=== PATIENT | male | born 1970 | race Caucasian/White ===

== ENCOUNTER 2018-12-17 19:12 | Inpatient (IN) | payer BC, OTHER ==
[2018-12-17 19:17] LABS: Glucose,Whole Blood 319 mg/dL (75-99)
[2018-12-17] MEDS ORDERED: ETOMIDATE 2 MG/ML 10 ML VIAL IVP STA (19:21)
[2018-12-17] MEDS ORDERED: ROCURONIUM BROMIDE 10 MG/ML 10 ML VIAL IV ONE (19:21)
[2018-12-17 19:32] LABS: HCT 44.3 % (39.0-53.0); HGB 14.6 gm/dL (13.0-17.5); MCH 30.4 pg (25.0-35.0); MCV 92.1 fL (80.0-100.0); Platelet Count 221 k/uL (150-450); RBC 4.81 m/uL (4.30-5.90); RDW 12.8 % (11.5-15.5); WBC 16.9 k/uL (3.8-10.6)
[2018-12-17] MEDS ORDERED: HEPARIN SODIUM,PORCINE 5,000 UNIT/ML 1 ML VIAL IV ONE (19:34)
[2018-12-17] MEDS ORDERED: HEPARIN SODIUM,PORCINE 5,000 UNIT/ML 1 ML VIAL IV PRN (19:34)
[2018-12-17] MEDS ORDERED: ASPIRIN 300 MG SUPP RECTAL STA (19:35)
[2018-12-17] MEDS ORDERED: PROPOFOL 1,000 MG in EMPTY BAG 1 BAG IV ONE (19:35)
[2018-12-17] MEDS ORDERED: PROPOFOL 10 MG/ML 20 ML VIAL IV ONE (19:36)
[2018-12-17 19:41] LABS: Albumin 4.1 g/dL (3.5-5.0); Potassium 3.8 mmol/L (3.5-5.1); Total Bilirubin 1.2 mg/dL (0.2-1.3); Total Protein 6.5 g/dL (6.3-8.2)
[2018-12-17] MEDS ORDERED: HEPARIN SOD,PORK IN 0.45% NACL 25,000 UNIT in 0.45% NACL 1 250ML.BAG IV SCH (19:45)
--- NOTE | 2018-12-17 19:46 | ED ---
CPR HPI - General Chief Complaint: Cardiac Arrest/CPR Stated Complaint: cardiac arrest Time Seen by Provider: 12/17/18 19:32 Source: family, EMS, RN notes reviewed Mode of arrival: EMS Limitations: no limitations - History of Present Illness Initial Comments: This is a 48-year-old male who was playing softball just prior to arrival when he started developing anterior chest pain and burning sensation. He collapsed suddenly and CPR was started initially. 35 minutes of CPR prior to arrival of EMS he was found be V. fib he was shocked 3 times intubation was attempted in the field but unsuccessful. Patient brought in unresponsive maintaining a pulse and blood pressure however. Per EMS there is elevation of the ST segments on EKG indicating AL. Per the patient's after is a family history of cardiac disease no personal history of the patient. He does have a history of type 2 diabetes. MD Complaint: collapsed during activity - Related Data Home Medications Medication Instructions Recorded Confirmed metFORMIN HCL 1,000 mg PO BID 12/17/18 12/17/18 Allergies Allergy/AdvReac Type Severity Reaction Status Date / Time No Known Allergies Allergy Verified 12/17/18 19:35 Review of Systems ROS Statement: Those systems with pertinent positive or pertinent negative responses have been documented in the HPI. ROS Other: All systems not noted in ROS Statement are negative. Limitations: ROS unobtainable due to patients medical condition Past Medical History Past Medical History: Diabetes Mellitus, Hyperlipidemia History of Any Multi-Drug Resistant Organisms: None Reported Past Surgical History: No Surgical Hx Reported Past Psychological History: No Psychological Hx Reported Smoking Status: Never smoker Past Alcohol Use History: None Reported Past Drug Use History: None Reported General Exam - General Exam Comments Initial Comments: This a well-developed well-nourished unresponsive male who did have a pulse and blood pressure upon arrival. He was noted to be vomiting examination. His pulse ox was not maintained. Intubation was attempted on several occasions. Suctioned during the process. He did require bag valve masking also. Several attempts are made at intubation unsuccessfully the patient was finally intubated by anesthesiology. Limitations: no limitations General appearance: obtunded, in distress Head exam: Present: atraumatic, normocephalic, normal inspection Eye exam: Present: normal appearance, PERRL, EOMI. Absent: scleral icterus, conjunctival injection, periorbital swelling ENT exam: Present: other (EmesisNoted in the airway.) Neck exam: Present: normal inspection, other (No stridor JVD or bruits). Absent : tenderness, meningismus, lymphadenopathy Respiratory exam: Present: decreased breath sounds Cardiovascular Exam: Present: normal rhythm, tachycardia GI/Abdominal exam: Present: other (Distended abdomen no masses palpable) Rectal exam: Present: deferred exam: Present: normal inspection Extremities exam: Present: normal inspection, normal capillary refill Back exam: Present: normal inspection Neurological exam: Present: altered Psychiatric exam: Present: other (Unable to evaluate) Skin exam: Present: diaphoretic, other (Cool the touch) Course Vital Signs 12/17/18 12/17/18 12/17/18 19:15 19:32 19:40 Pulse Rate 133 H 140 H 126 H Respiratory 7 L 8 L 18 Rate Blood Pressure 110/71 118/96 137/87 O2 Sat by Pulse 94 L 95 Oximetry - Reevaluation(s) Reevaluation #1: 12/17/18 19:45 During the preparation for initial intubation patient was noted by down on the suction catheter. He did briefly become responsive. The patient was given Versed but not morphine sulfate. Dr. Delong was consulted prior to the patient arrival he did come to the emergency department to evaluate the patient. Reevaluation #2: 12/17/18 19:50 Dr. Delong did come the emergency department and the patient did go the [facility]. Procedures - Intubation Sedative: Etomidate Mg Given: 20 Paralytic: Rocuronium Mg Given: 100 Laryngoscope: fiber optic video scope Assist Device Used: Bougie Intubation Complications: unable to intubate, difficult intubation Medical Decision Making - Medical Decision Making The patient was admitted to the [facility]. - Lab Data Result diagrams: 12/17/18 19:25 12/17/18 19:25 Lab Results 12/17/18 12/17/18 12/17/18 Range/Units 19:16 19:25 19:25 WBC 16.9 H (3.8-10.6) k/uL RBC 4.81 (4.30-5.90) m/uL Hgb 14.6 (13.0-17.5) gm/dL Hct 44.3 (39.0-53.0) % MCV 92.1 (80.0-100.0) fL MCH 30.4 (25.0-35.0) pg MCHC 33.0 (31.0-37.0) g/dL RDW 12.8 (11.5-15.5) % Plt Count 221 (150-450) k/uL PT (9.0-12.0) sec INR (<1.2) APTT (22.0-30.0) sec Sodium 143 (137-145) mmol/L Potassium 3.8 (3.5-5.1) mmol/L Chloride 105 (98-107) mmol/L Carbon Dioxide 16 L (22-30) mmol/L Anion Gap 22 mmol/L BUN 18 (9-20) mg/dL Creatinine 1.49 H (0.66-1.25) mg/dL Est GFR (CKD-EPI)AfAm 63 (>60 ml/min/1.73 sqM) Est GFR (CKD-EPI)NonAf 55 (>60 ml/min/1.73 sqM) Glucose 340 H (74-99) mg/dL POC Glucose (mg/dL) 319 H (75-99) mg/dL POC Glu Model And Mold Maker ID Fidel Augustine Calcium 9.0 (8.4-10.2) mg/dL Total Bilirubin 1.2 (0.2-1.3) mg/dL AST 222 H (17-59) U/L ALT 281 H (21-72) U/L Alkaline Phosphatase 57 (38-126) U/L Total Creatine Kinase (55-170) U/L CK-MB (CK-2) (0.0-2.4) ng/mL CK-MB (CK-2) Rel Index Troponin I (0.000-0.034) ng/mL Total Protein 6.5 (6.3-8.2) g/dL Albumin 4.1 (3.5-5.0) g/dL 12/17/18 12/17/18 Range/Units 19:25 19:25 WBC (3.8-10.6) k/uL RBC (4.30-5.90) m/uL Hgb (13.0-17.5) gm/dL Hct (39.0-53.0) % MCV (80.0-100.0) fL MCH (25.0-35.0) pg MCHC (31.0-37.0) g/dL RDW (11.5-15.5) % Plt Count (150-450) k/uL PT 11.0 (9.0-12.0) sec INR 1.0 (<1.2) APTT 21.2 L (22.0-30.0) sec Sodium (137-145) mmol/L Potassium (3.5-5.1) mmol/L Chloride (98-107) mmol/L Carbon Dioxide (22-30) mmol/L Anion Gap mmol/L BUN (9-20) mg/dL Creatinine (0.66-1.25) mg/dL Est GFR (CKD-EPI)AfAm (>60 ml/min/1.73 sqM) Est GFR (CKD-EPI)NonAf (>60 ml/min/1.73 sqM) Glucose (74-99) mg/dL POC Glucose (mg/dL) (75-99) mg/dL POC Glu Model And Mold Maker ID Calcium (8.4-10.2) mg/dL Total Bilirubin (0.2-1.3) mg/dL AST (17-59) U/L ALT (21-72) U/L Alkaline Phosphatase (38-126) U/L Total Creatine Kinase 123 (55-170) U/L CK-MB (CK-2) 0.4 (0.0-2.4) ng/mL CK-MB (CK-2) Rel Index 0.3 Troponin I 0.018 (0.000-0.034) ng/mL Total Protein (6.3-8.2) g/dL Albumin (3.5-5.0) g/dL - EKG Data -: EKG Interpreted by Me (EKG showed a sinus tachycardia of 141 ID interval 180 QRS duration 90 QT si) - Radiology Data Radiology results: image reviewed (Imaging was performed I did review the x-ray report was pending the endotracheal tube was above the florence.) Critical Care Time Critical Care Time: Yes Critical Care Time: 35 minutes of critical care time which reason case with history physical labs x- rays this does not include intubation attempt. This does include discussion with the patient's upon arrival discussed with paramedics upon arrival discussion with Dr. Delong and discussed with Dr. Han as well as discussed with Dr. Macias. We will any history that was available and documentation of the above Disposition Clinical Impression: Cardiac arrest, Acute myocardial infarction, Cardiac arrest with ventricular fibrillation, Signs of return of spontaneous circulation Disposition: ADMITTED IP TO THIS HOSP Condition: Critical Referrals: Iam Macias Jr, DO [Primary Care Provider] - 1-2 days
[2018-12-17 19:52] LABS: Partial Thromboplastin Time 21.2 sec (22.0-30.0)
[2018-12-17] MEDS ORDERED: ASPIRIN 325 MG TAB ONE (19:55)
[2018-12-17 19:59] LABS: Creatine Kinase MB 0.4 ng/mL (0.0-2.4); Troponin I 0.018 ng/mL (0.000-0.034)
--- NOTE | 2018-12-17 20:02 | XR ---
EXAMINATION TYPE: XR chest 1V portable DATE OF EXAM: 12/17/2018 COMPARISON: 10/26/2014 HISTORY: Chest pain TECHNIQUE: Single frontal view of the chest is obtained. FINDINGS: Endotracheal tube is 6 cm from the florence. There is some pulmonary edema. Costophrenic ang les are clear. Heart size is normal. There are chest leads. IMPRESSION: There is pulmonary edema that could relate to acute heart failure. Pulmonary edema is ne w compared to old exam.
[2018-12-17] MEDS ORDERED: LIDOCAINE 1% INJ 10MG/ML (20 ML MDV) SQ ONE (20:03)
[2018-12-17] MEDS ORDERED: ASPIRIN 325 MG TAB OG-TUBE ONE (20:03)
--- NOTE | 2018-12-17 20:03 | ED ---
Medical Decision Making - Lab Data Result diagrams: 12/17/18 19:25 12/17/18 19:25 Lab Results 12/17/18 12/17/18 12/17/18 Range/Units 19:16 19:25 19:25 WBC 16.9 H (3.8-10.6) k/uL RBC 4.81 (4.30-5.90) m/uL Hgb 14.6 (13.0-17.5) gm/dL Hct 44.3 (39.0-53.0) % MCV 92.1 (80.0-100.0) fL MCH 30.4 (25.0-35.0) pg MCHC 33.0 (31.0-37.0) g/dL RDW 12.8 (11.5-15.5) % Plt Count 221 (150-450) k/uL PT (9.0-12.0) sec INR (<1.2) APTT (22.0-30.0) sec Sodium 143 (137-145) mmol/L Potassium 3.8 (3.5-5.1) mmol/L Chloride 105 (98-107) mmol/L Carbon Dioxide 16 L (22-30) mmol/L Anion Gap 22 mmol/L BUN 18 (9-20) mg/dL Creatinine 1.49 H (0.66-1.25) mg/dL Est GFR (CKD-EPI)AfAm 63 (>60 ml/min/1.73 sqM) Est GFR (CKD-EPI)NonAf 55 (>60 ml/min/1.73 sqM) Glucose 340 H (74-99) mg/dL POC Glucose (mg/dL) 319 H (75-99) mg/dL POC Glu Communication Coordinator ID Fidel Augustine Calcium 9.0 (8.4-10.2) mg/dL Total Bilirubin 1.2 (0.2-1.3) mg/dL AST 222 H (17-59) U/L ALT 281 H (21-72) U/L Alkaline Phosphatase 57 (38-126) U/L Total Creatine Kinase (55-170) U/L CK-MB (CK-2) (0.0-2.4) ng/mL CK-MB (CK-2) Rel Index Troponin I (0.000-0.034) ng/mL Total Protein 6.5 (6.3-8.2) g/dL Albumin 4.1 (3.5-5.0) g/dL 12/17/18 12/17/18 Range/Units 19:25 19:25 WBC (3.8-10.6) k/uL RBC (4.30-5.90) m/uL Hgb (13.0-17.5) gm/dL Hct (39.0-53.0) % MCV (80.0-100.0) fL MCH (25.0-35.0) pg MCHC (31.0-37.0) g/dL RDW (11.5-15.5) % Plt Count (150-450) k/uL PT 11.0 (9.0-12.0) sec INR 1.0 (<1.2) APTT 21.2 L (22.0-30.0) sec Sodium (137-145) mmol/L Potassium (3.5-5.1) mmol/L Chloride (98-107) mmol/L Carbon Dioxide (22-30) mmol/L Anion Gap mmol/L BUN (9-20) mg/dL Creatinine (0.66-1.25) mg/dL Est GFR (CKD-EPI)AfAm (>60 ml/min/1.73 sqM) Est GFR (CKD-EPI)NonAf (>60 ml/min/1.73 sqM) Glucose (74-99) mg/dL POC Glucose (mg/dL) (75-99) mg/dL POC Glu Communication Coordinator ID Calcium (8.4-10.2) mg/dL Total Bilirubin (0.2-1.3) mg/dL AST (17-59) U/L ALT (21-72) U/L Alkaline Phosphatase (38-126) U/L Total Creatine Kinase 123 (55-170) U/L CK-MB (CK-2) 0.4 (0.0-2.4) ng/mL CK-MB (CK-2) Rel Index 0.3 Troponin I 0.018 (0.000-0.034) ng/mL Total Protein (6.3-8.2) g/dL Albumin (3.5-5.0) g/dL Disposition Clinical Impression: Cardiac arrest, Acute myocardial infarction, Cardiac arrest with ventricular fibrillation, Signs of return of spontaneous circulation, Acute respiratory failure Disposition: ADMITTED IP TO THIS HOSP Condition: Critical Referrals: Iam Macais Jr, DO [Primary Care Provider] - 1-2 days Procedures - [place] Protocol (Time Out) Patient Identification (2 identifiers required): Chart, Arm Band, Name, Birthdate Patient/Legal Manufacturing Technology Analyst has Confirmed: Identity, Procedure, Consent Site Marked: Not Applicable
[2018-12-17] MEDS ORDERED: IV FLUID CONTINUATION 1,000 ML IV ONE (20:04)
[2018-12-17] MEDS ORDERED: NOREPINEPHRINE 4 MG in SODIUM CHLORIDE 0.9% 250 ML IV ONE (20:10)
[2018-12-17] MEDS ORDERED: BIVALIRUDIN BOLUS 250 MG/50 ML IV ONE (20:10)
[2018-12-17] MEDS ORDERED: BIVALIRUDIN 250 MG in SODIUM CHLORIDE 0.9% 50 ML IV ONE (20:10)
--- NOTE | 2018-12-17 20:11 | P.PN ---
Progress Note - Text Progress Note Date: 12/17/18 Anesthesiology called emergently down to ED to assist with intubation. Pt hypoxic with vomitus in the mouth at the time. An attempt at intubation in progress by the ED at the time. Once anesthesiology takes over, DLx1 with Glidescope with grade 1 view. Difficulty passing ETT due to Glidescope stylette severely bent. Repeat DLx1 with appropriate stylette. 8-0 ETT to 22 cm. +EtCO2 and b/l BS. ETT secured by ED staff. Further care by ED staff.
[2018-12-17] MEDS ORDERED: NITROGLYCERIN 1000MCG/10ML SYRINGE INTRACORON ONE (20:22)
[2018-12-17] MEDS ORDERED: MIDAZOLAM (PF) 2 MG/2 ML VIAL IV ONE (20:22)
[2018-12-17] MEDS ORDERED: METOPROLOL TARTRATE 5 MG/5 ML VIAL IVP ONE ×2 (20:26→20:28)
[2018-12-17] MEDS ORDERED: IOPAMIDOL-370 100ML BTL INJ ONE ×2 (20:30→20:31)
[2018-12-17] MEDS ORDERED: PRASUGREL 10 MG TAB ONE ×2 (20:33→20:34)
[2018-12-17] MEDS ORDERED: PRASUGREL 10 MG TAB OG-TUBE ONE (20:36)
--- NOTE | 2018-12-17 21:36 | CONS ---
CONSULTATION DATE OF CONSULTATION: Mr. Ha Pacheco is a gentleman who was brought to the emergency room by EMS after a witnessed cardiac arrest that happened apparently when he was playing baseball. The information that I have is he complained of some heartburn before he went out to play the game with his , and apparently on the baseball field he had chest pressure, burning discomfort and collapsed. EMS was called; probably about a 5- to 10-minute time frame. They did CPR. Initial rhythm was ventricular fibrillation. He was shocked 3 times. He had a sinus rhythm. Then he was intubated. They had some difficulty with intubation. After he arrived in the emergency room, his oxygenation was inadequate. He was again re-intubated and there was a lot of secretions. Possibility of aspiration is quite high. As I arrive, the patient is sedated, on a ventilator, and he is hemodynamically stable with a pressure of about 112 systolic. EKG suggests acute inferior MS with precordial ST depression and inferior ST elevation. I obtained the history mostly from the patient's . Apparently he has type 2 diabetes, takes oral agents, has not had any documented MS or any recent stress testing. He has no hypertension. He does not smoke. He does not take any statin medications. PAST MEDICAL HISTORY: Type 2 diabetes, on oral agents. PHYSICAL EXAMINATION: Blood pressure 112/70. Pulse rate is about 104 per minute. HEENT: Limited examination was performed. The patient had CPR and had resuscitation. Pupils were dilated. S1, S2 were heard normally without significant murmurs. Tachycardia noted. Lungs reveal bilateral ventilator-assisted breath sounds. Abdomen is soft. Lower extremities reveal palpable pulses. Central nervous system assessment was not performed. IMPRESSION: 1. Acute inferior ST-elevation myocardial infarction with a cardiac arrest, resuscitated with ventricular fibrillation. 2. Type 2 diabetes mellitus. RECOMMENDATIONS: I spoke to the patient's and family members, recommended prompt cardiac catheterization and intervention based on findings. Rationale, risks, benefits and options were explained, and I proceeded with the cardiac cath immediately. MMODL / IJN: [id number] /
[2018-12-17 21:45] LABS: ABG Base Excess -2.8 mmol/L; ABG HCO3 24 mmol/L (21-25); ABG Oxygen Saturation 91.5 % (94-97); ABG PCO2 48 mmHg (35-45); ABG PO2 67 mmHg (83-108); ABG TCO2 25 mmol/L (19-24); Allen Test Performed? Yes
--- NOTE | 2018-12-17 21:45 | CC ---
CARDIAC CATHETERIZATION REPORT DATE OF SERVICE: 12/17/2018 PROCEDURE: 1. Left heart catheterization, coronary angiography. 2. Percutaneous transluminal coronary angioplasty and stenting of totally occluded mid circumflex performed in the setting of an acute ST-elevation myocardial infarction with re-perfusion accomplished in 61 minutes. PERFORMED BY: Dr. Charla Delong. Moderate conscious sedation time was 36 minutes. Patient was on Versed and propofol drip. His oxygen saturation, hemodynamics and EKG were monitored closely. The patient was hypoxic in the high 80s and low 90s during the procedure, FiO2 of about 100% on the ventilator. The patient probably aspirated and had hypoxia. CLINICAL INFORMATION: Ha Pacheco was brought to the emergency room by EMS after a witnessed cardiac arrest and resuscitated ventricular fibrillation. Patient was not on any pressors. He received IV fluids. He was advised prompt cardiac catheterization. PROCEDURE NOTE: Under local anesthesia and strict aseptic precautions, a 6-Kiswahili introducer was placed in the right femoral artery. Using a right guide catheter of Mariaa type, I performed selective coronary angiography of right coronary artery. I then used a left Mariaa type guide catheter and performed PCI. I obtained initial images of the left system, then proceeded to perform PCI, and then did checking of his LV pressures. LV gram was not performed. The sheath was taken out and a Perclose device used to secure hemostasis and he was sent to the room in a stable condition. Overall patient was hemodynamically stable. However, I gave him almost a liter of IV fluids 0.9 saline and placed him on about 7.5 mcg of Levophed. His systolic pressure was about 105 mmHg. Cardiac Cath Findings : LVEDP =24 mm of Hg. No gradient across AV. RCA--Dominant No sig Dz, gives off PLV only. Left Main : Patent disease free vessel, bifurcates into LAD an LCX. LAD : No sig Dz. LCX : 100% occlusion in mid portion. PCI PROCEDURE DETAILS: I used a standard left Mariaa guide catheter to cannulate the left coronary artery. A run-through wire was used to cross the lesion in Lcx. A 3.0 caliber, 12 mm Trek balloon was used to pre-dilate the lesion. I deployed a 12 mm long, 3.0 caliber Xience stent at 12 atmospheres. Patient had more prominent EKG changes. Could not assess chest pain. Excellent angiographic result was achieved with remarkably good angiographic appearance and flow with significant improvement in the EKG, but mild ST-segment elevation still persisted. The patient had a SEDRICK-3 flow. His Levophed dose was about 7.5 mcg. The sheath was taken out and a Perclose device used to secure hemostasis and he was sent to the ICU, when the findings and details of the procedure were discussed with the patient and several family members, specifically his .Angiomax bolus and infusion was given per protocol. Effient 60 mg given thru NGTube. Excellent angiographic result was achieved. Re-perfusion was achieved in 61 minutes. I expect patient will do well cardiac-french. Neurologically we will have to see how he does, and also there is concern about hypoxia and aspiration, which may contribute to his prognosis. Prognosis remains guarded. MMTUTUL / IJN: [id number] / MTDD
[2018-12-17] MEDS: SODIUM CHLORIDE 0.9% 1,000 ML IV SCH (22:14)
[2018-12-17] MEDS ORDERED: INSULIN ASPART (NovoLOG) 100 UNIT/ML VIAL SQ SCH (22:15)
[2018-12-17] MEDS: PROPOFOL 1,000 MG in EMPTY BAG 1 BAG IV SCH (22:20)
[2018-12-17] MEDS: POTASSIUM CHLORIDE 10 MEQ in WATER FOR INJECTION 1 100ML.BAG IVPB SCH ×2 (22:23→23:30)
--- NOTE | 2018-12-17 22:57 | XR ---
EXAM: XR Chest, 1 View CLINICAL HISTORY: ITS.REASON XR Reason: mechanical intubation TECHNIQUE: Frontal view of the chest. COMPARISON: 12/17/18 at 1939. FINDINGS: Interval placement of feeding tube with the tip in the stomach. Endotracheal tube appears unchanged. Additional findings similar to prior. IMPRESSION: Interval placement of feeding tube with the tip in the stomach.
[2018-12-17] MEDS: NOREPINEPHRINE 4 MG in SODIUM CHLORIDE 0.9% 250 ML IV SCH (23:15)
[2018-12-17] MEDS: IPRATROPIUM-ALBUTEROL 3 ML NEB INHALATION SCH (23:16)
[2018-12-18 00:37] LABS: Glucose,Whole Blood 120 mg/dL (75-99)
[2018-12-18] MEDS: INSULIN ASPART (NovoLOG) 100 UNIT/ML VIAL SQ SCH ×4 (00:43→17:54)
[2018-12-18] MEDS: PROPOFOL 1,000 MG in EMPTY BAG 1 BAG IV SCH ×10 (00:46→20:56)
[2018-12-18] MEDS: IPRATROPIUM-ALBUTEROL 3 ML NEB INHALATION SCH ×6 (02:33→23:33)
[2018-12-18] MEDS ORDERED: NALOXONE 0.4 MG/ML 1 ML VIAL IV PRN (02:51)
[2018-12-18 04:32] LABS: ABG HCO3 24 mmol/L (21-25); ABG Oxygen Saturation 99.6 % (94-97); ABG PCO2 41 mmHg (35-45); ABG PH 7.38 (7.35-7.45); ABG PO2 183 mmHg (83-108); ABG TCO2 26 mmol/L (19-24); Allen Test Performed? Yes
[2018-12-18 05:16] LABS: Basophils % (A) 0 %; Eosinophils % (A) 1 %; HCT 44.2 % (39.0-53.0); HGB 14.3 gm/dL (13.0-17.5); Lymphocytes # (A) 0.3 k/uL (1.0-4.8); Lymphocytes % (A) 5 %; MCH 28.7 pg (25.0-35.0); MCHC 32.4 g/dL (31.0-37.0); MCV 88.6 fL (80.0-100.0); Mean Platelet Volume 7.4; Monocytes # (A) 0.3 k/uL (0-1.0); Monocytes % (A) 5 %; Neutrophils # (A) 5.7 k/uL (1.3-7.7); Neutrophils % (A) 89 %; Platelet Count 168 k/uL (150-450); RBC 4.99 m/uL (4.30-5.90); WBC 6.4 k/uL (3.8-10.6)
[2018-12-18 05:21] LABS: African American GFR (CKD) >90 (>60 ml/min/1.73 sqM); Anion Gap 5 mmol/L; Blood Urea Nitrogen 19 mg/dL (9-20); Calcium 8.4 mg/dL (8.4-10.2); Carbon Dioxide 24 mmol/L (22-30); Chloride 110 mmol/L (98-107); Glucose 164 mg/dL (74-99); Magnesium 1.5 mg/dL (1.6-2.3); Phosphorus 2.1 mg/dL (2.5-4.5); Potassium 3.8 mmol/L (3.5-5.1); Sodium 139 mmol/L (137-145)
[2018-12-18] MEDS ORDERED: Potassium Replacement Protocol 1 EACH MISC MISCELLANE PRN (05:28)
[2018-12-18] MEDS ORDERED: Magnesium Replacement Protocol 1 EACH MISC MISCELLANE PRN (05:29)
[2018-12-18] MEDS: POTASSIUM CHLORIDE 10 MEQ in WATER FOR INJECTION 1 100ML.BAG IVPB SCH ×2 (05:35→06:40)
[2018-12-18 05:40] LABS: Glucose,Whole Blood 151 mg/dL (75-99)
[2018-12-18] MEDS: MAGNESIUM SULFATE-D5W PMX 1 GM in DEXTROSE/WATER 1 100ML.BAG IVPB SCH ×2 (05:56→06:51)
[2018-12-18] MEDS ORDERED: Phosphorus Replacement Protoco 1 EACH MISC MISCELLANE PRN (06:08)
[2018-12-18] MEDS ORDERED: POTASSIUM PHOSPHATE 10 MMOL in SODIUM CHLORIDE 0.9% 250 ML IV ONE (06:30)
--- NOTE | 2018-12-18 06:48 | XR ---
EXAMINATION TYPE: XR chest 1V portable DATE OF EXAM: 12/18/2018 HISTORY: Tube placement. REFERENCE: Previous study dated . FINDINGS: An ET tube and feeding tube remain in place, unchanged in appearance. Heart size upper limits of normal. There is developing atelectasis at the left lung base. There is ai rspace disease of the right lung base. This has progressed. There is a small right effusion. IMPRESSION: 1. DEVELOPING LEFT BASILAR ATELECTASIS. 2. RIGHT LOWER LOBE AIRSPACE DISEASE WITH A CONCOMITANT EFFUSION.
[2018-12-18] MEDS: CHLORHEXIDINE GLUCONATE 15 ML CUP MUCOUS MEM SCH ×2 (08:26→21:55)
[2018-12-18] MEDS: ATORVASTATIN 80 MG TAB PO SCH (08:26)
[2018-12-18] MEDS: ASPIRIN 81 MG PO SCH (08:26)
[2018-12-18] MEDS: PRASUGREL 10 MG TAB PO SCH (08:26)
[2018-12-18] MEDS: PANTOPRAZOLE 40 MG/10 ML VIAL IV SCH (08:26)
[2018-12-18] MEDS: HEPARIN SODIUM,PORCINE 5,000 UNIT/ML 1 ML VIAL SQ SCH ×2 (08:26→16:14)
[2018-12-18] MEDS: SODIUM CHLORIDE 0.9% 1,000 ML IV SCH ×2 (08:59→16:27)
--- NOTE | 2018-12-18 09:58 | CONS ---
CONSULTATION DATE OF CONSULTATION: December 18, 2018 This is a 48-year-old male who apparently was playing softball yesterday. He apparently developed chest pain and chest discomfort with a burning sensation. He apparently collapsed and was in full cardiopulmonary arrest and bystander CPR was started. He apparently had CPR for some period of time prior to EMS arriving. He apparently was found when paddles were placed on his chest to be in ventricular fibrillation and he was defibrillated 3 times. He was intubated in the field but apparently extubated himself and there was an attempt at re-intubation in the emergency room. Apparently, the ER physician could not reintubate him and the patient was finally intubated by Anesthesia. The EKG apparently showed ST-segment elevation suggesting a STEMI and once stabilized in the emergency room and after being intubated, he was taken to the catheterization laboratory where he had a successful angioplasty of his circumflex coronary artery. I did speak to both the ER physician, Dr. Kevin and also the hemmer automatic, Dr. Charla Delong. Interestingly, in the process of trying to be intubated in the emergency room, the patient had a large volume aspiration. His chest x-ray shows diffuse bilateral infiltrates and initially he was quite hypoxemic. The patient apparently does have a history of diabetes and hyperlipidemia. There is apparently a family history of cardiac disease. HOME MEDICATIONS: Apparently were just metformin. ALLERGIES: He has no known allergies. PAST MEDICAL HISTORY: He has a history of diabetes and hyperlipidemia are his only medical history. No prior surgical history. SOCIAL HISTORY: Negative tobacco, alcohol or illicit drug use. Occupational history could not be obtained. FAMILY HISTORY: Positive for cardiac disease. REVIEW OF SYSTEMS: Cannot be obtained at this time. Apparently prior to his collapse, he started complaining of chest pain and chest burning. Currently, the patient is on the mechanical ventilator. He is on the volume assist- control mode rate of 22, tidal volume 500, FiO2 of 70%, PEEP of 10. Blood gases that were done on 100% show pO2 of 183, pCO2 of 41, pH 7.38. Respiratory therapist know to continue to titrate down the FiO2. He is currently on propofol at 75 mcg/kg per minute and a saline IV 100 mL an hour. The endotracheal tube needs to be pushed down 1 cm and we are going to place an art line in the patient and add some Dilaudid for pain control. PHYSICAL EXAMINATION: VITAL SIGNS: Current vital signs are reviewed. Temperature is 100.3, heart rate 116, respiratory rate 20, blood pressure 100/75, mean 82, saturations are 100%. Currently sedated. HEENT examination is grossly unremarkable. He has an orally placed endotracheal tube and NG tube. NECK: Supple. No adenopathy, thyromegaly or neck vein distention. CARDIOVASCULAR examination reveals regular rhythm and rate. He is mildly tachycardic. Heart rate about 100 to 105 beats per minute. LUNGS: Coarse rhonchi bilaterally. No wheezes or crackles. ABDOMEN: Soft. Bowel sounds are not noted. EXTREMITIES are intact. No cyanosis, clubbing, or edema. SKIN: Without rash. NEUROLOGIC examination could not be evaluated because of his level of sedation. Microbiologic studies are negative. LABS: Reviewed. White count 6.4, hemoglobin 14.3, hematocrit 44.2, platelet count 168,000. Sodium 139, potassium 3.8, chloride 110, CO2 24 anion gap is 5, BUN and creatinine were 19 and 0.95. Troponin 9.050. Phosphorus 2.1, magnesium 1.5. Zero 5. Chest x-ray shows diffuse bilateral infiltrates. Medications are reviewed. He is currently on aspirin, Lipitor, chlorhexidine, subcu heparin, insulin subcu, DuoNeb q.4, magnesium, phosphorus and potassium replacement protocols, Narcan, Protonix, Effient. ASSESSMENT: 1. Status post [id number] cardiopulmonary arrest with ventricular fibrillation noted on monitor, status post defibrillation x3 and subsequent PCI with stenting of the circumflex coronary artery. 2. ST-segment elevation myocardial infarction/inferior wall. 3. Hypoxemic respiratory failure requiring intubation and mechanical ventilation. 4. Large volume gastric aspiration. 5. History of diabetes. 6. History of hyperlipidemia. 7. Family history of cardiac disease. 8. Electrolyte disturbances including hypophosphatemia and hypomagnesemia. PLAN: The patient will have an art line placed. We will add some Dilaudid for pain control. He will continue on propofol. We will continue to wean the FiO2. The PEEP was increased to improve oxygenation. His acid-base status is stable. No additional recommendations are made. Prognosis is guarded. I did speak to the ER physician and to the hemmer automatic about this patient. We will continue to watch closely. The patient will be cultured including blood, sputum and urine. MMODL / IJN: [id number] /
--- NOTE | 2018-12-18 10:10 | PCN ---
This procedure was done for hemodynamic monitoring for hypotension and possible pressor requirements. PROCEDURE NOTE DATE OF SERVICE: 12/18/2018 ARTERIAL LINE PLACEMENT: Indications: Hemodynamic monitoring. A time-out was completed verifying correct patient, procedure, site, positioning, and implant(s) or special equipment if applicable. Ebenezer's test was performed to ensure adequate perfusion. The patient's left wrist was prepped and draped in sterile fashion. 1% Lidocaine was used to anesthetize the area. An 18G Arrow arterial line was introduced into the radial artery. The catheter was threaded over the guide wire and the needle was removed with appropriate pulsatile blood return. Blood loss was minimal. The catheter was then sutured in place to the skin and a sterile dressing applied. Perfusion to the extremity distal to the point of catheter insertion was checked and found to be adequate. The patient tolerated the procedure well and there were no complications. MMODL / IJN: [id number] / MTDD
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
[2018-12-18 11:46] LABS: Glucose,Whole Blood 153 mg/dL (75-99)
[2018-12-18] MEDS: NOREPINEPHRINE 4 MG in SODIUM CHLORIDE 0.9% 250 ML IV SCH ×2 (11:52→23:10)
--- NOTE | 2018-12-18 14:52 | P.PN ---
Subjective Progress Note Date: 12/18/18 this is a 48-year-old gentleman who was admitted following cardiac arrest with documented ventricular fibrillation. This is preceded by chest pain. Patient had a cardiac catheterization and stent placement of the circumflex in the setting of acute myocardial infarction. It appears that patient might have had aspiration pneumonia. Patient is still intubated and sedated. Apparently when he is less sedated. Patient was moving all extremitiesand responding to verbal commands. His pupils are equal and reactive. He is in sinus rhythm. His blood pressures are running on the low side in the range of 9200 systolic. His urine output is good. His lab work showsnormal hemoglobin, normal electrolytes except low magnesium level. This is being corrected. His troponin went up 9.05. Overall patient seemed to be hemodynamically stable. Mental status seemed to be reasonable at this time Objective - Vital Signs Vital signs: Vital Signs Temp 97.9 F 12/18/18 12:00 Pulse 101 H 12/18/18 14:30 Resp 29 H 12/18/18 14:30 BP 101/69 12/18/18 14:30 Pulse Ox 100 12/18/18 14:30 Intake & Output 12/17/18 12/18/18 12/18/18 18:59 06:59 18:59 Intake Total 3628.889 7002.000 Output Total 955 680 Balance 632.290 870.000 Weight 114 kg 114 kg Intake: IV 1300 1250 Magnesium Sulfate-D5w Pmx 100 100 1 gm In Dextrose/Water 1 100ml.bag @ 100 mls/hr IVPB Q1H [facility] Rx#: [id number] Potassium Chloride 10 meq 300 100 In Water For Injection 1 100ml.bag @ 100 mls/hr IVPB Q1H [facility] Rx#: [id number] Potassium Phosphate 10 250 mmol In Sodium Chloride 0 .9% 250 ml @ 125 mls/hr IV ONCE ONE Rx#:[id number] Sodium Chloride 0.9% 1, 900 800 000 ml @ 100 mls/hr IV . Q10H [facility] Rx#:[id number] Intake, IV Titration 287.290 300.000 Amount Norepinephrine 4 mg In 17.858 Sodium Chloride 0.9% 250 ml @ 0.05 MCG/KG/MIN 21. 602 mls/hr IV .[id number] [facility] Rx#:[id number] Propofol 1,000 mg In 269.432 300.000 Empty Bag 1 bag @ Titrate IV .Q0M [facility] Rx#: [id number] Output: Urine 955 680 Uretheral (Bailey) 100 Other: Voiding Method Indwelling Catheter Indwelling Catheter ABP, PAP, CO, CI - Last Documented Arterial Blood Pressure 105/64 - Exam GENERAL EXAM: Patient is ntubated and sedated. HEENT: Normocephalic. Normal reaction of pupils, equal size, normal range of extraocular motion. No erythema or exudates in the throat. NECK: No masses, no nuchal rigidity. CHEST: No chest wall deformity. LUNGS: [Equal air entry with no crackles or wheeze.] HEART: [S1 and S2 normal with no audible mumurs or gallops. Regular rhythm, femorals equal on both sides.. ABDOMEN: No hepatosplenomegaly, normal bowel sounds, no guarding or rigidity. SKIN: No rashes CENTRAL NERVOUS SYSTEM: sedated and unresponsive, deferred EXTREMITIES: [No cyanosis, clubbing or edema.] - Labs CBC & Chem 7: 12/18/18 04:59 12/18/18 04:59 Labs: Abnormal Lab Results - Last 24 Hours (Table) 12/17/18 12/17/18 12/17/18 Range/Units 19:16 19:25 19:25 WBC 16.9 H (3.8-10.6) k/uL Lymphocytes # (1.0-4.8) k/uL APTT (22.0-30.0) sec ABG pH (7.35-7.45) ABG pCO2 (35-45) mmHg ABG pO2 (83-108) mmHg ABG Total CO2 (19-24) mmol/L ABG O2 Saturation (94-97) % Chloride (98-107) mmol/L Carbon Dioxide 16 L (22-30) mmol/L Creatinine 1.49 H (0.66-1.25) mg/dL Glucose 340 H (74-99) mg/dL POC Glucose (mg/dL) 319 H (75-99) mg/dL Phosphorus (2.5-4.5) mg/dL Magnesium (1.6-2.3) mg/dL AST 222 H (17-59) U/L ALT 281 H (21-72) U/L Troponin I (0.000-0.034) ng/mL 12/17/18 12/17/18 12/18/18 Range/Units 19:25 21:45 00:36 WBC (3.8-10.6) k/uL Lymphocytes # (1.0-4.8) k/uL APTT 21.2 L (22.0-30.0) sec ABG pH 7.30 L (7.35-7.45) ABG pCO2 48 H (35-45) mmHg ABG pO2 67 L (83-108) mmHg ABG Total CO2 25 H (19-24) mmol/L ABG O2 Saturation 91.5 L (94-97) % Chloride (98-107) mmol/L Carbon Dioxide (22-30) mmol/L Creatinine (0.66-1.25) mg/dL Glucose (74-99) mg/dL POC Glucose (mg/dL) 120 H (75-99) mg/dL Phosphorus (2.5-4.5) mg/dL Magnesium (1.6-2.3) mg/dL AST (17-59) U/L ALT (21-72) U/L Troponin I (0.000-0.034) ng/mL 12/18/18 12/18/18 12/18/18 Range/Units 04:24 04:59 04:59 WBC (3.8-10.6) k/uL Lymphocytes # 0.3 L (1.0-4.8) k/uL APTT (22.0-30.0) sec ABG pH (7.35-7.45) ABG pCO2 (35-45) mmHg ABG pO2 183 H (83-108) mmHg ABG Total CO2 26 H (19-24) mmol/L ABG O2 Saturation 99.6 H (94-97) % Chloride 110 H (98-107) mmol/L Carbon Dioxide (22-30) mmol/L Creatinine (0.66-1.25) mg/dL Glucose 164 H (74-99) mg/dL POC Glucose (mg/dL) (75-99) mg/dL Phosphorus 2.1 L (2.5-4.5) mg/dL Magnesium 1.5 L (1.6-2.3) mg/dL AST (17-59) U/L ALT (21-72) U/L Troponin I (0.000-0.034) ng/mL 12/18/18 12/18/18 12/18/18 Range/Units 04:59 05:39 11:45 WBC (3.8-10.6) k/uL Lymphocytes # (1.0-4.8) k/uL APTT (22.0-30.0) sec ABG pH (7.35-7.45) ABG pCO2 (35-45) mmHg ABG pO2 (83-108) mmHg ABG Total CO2 (19-24) mmol/L ABG O2 Saturation (94-97) % Chloride (98-107) mmol/L Carbon Dioxide (22-30) mmol/L Creatinine (0.66-1.25) mg/dL Glucose (74-99) mg/dL POC Glucose (mg/dL) 151 H 153 H (75-99) mg/dL Phosphorus (2.5-4.5) mg/dL Magnesium (1.6-2.3) mg/dL AST (17-59) U/L ALT (21-72) U/L Troponin I 9.050 H* (0.000-0.034) ng/mL Microbiology - Last 24 Hours (Table) 12/18/18 02:50 Sputum Culture - Preliminary Sputum Assessment and Plan (1) Acute myocardial infarction Current Visit: Yes Status: Acute Code(s): I21.9 - ACUTE MYOCARDIAL INFARCTION, UNSPECIFIED SNOMED Code(s): 87986954 (2) Acute respiratory failure Current Visit: Yes Status: Acute Code(s): J96.00 - ACUTE RESPIRATORY FAILURE, UNSP W HYPOXIA OR HYPERCAPNIA SNOMED Code(s): 48466569 (3) Cardiac arrest Current Visit: Yes Status: Acute Code(s): I46.9 - CARDIAC ARREST, CAUSE UNSPECIFIED SNOMED Code(s): 209398238 (4) Cardiac arrest with ventricular fibrillation Current Visit: Yes Status: Acute Code(s): I46.9 - CARDIAC ARREST, CAUSE UNSPECIFIED; I49.01 - VENTRICULAR FIBRILLATION SNOMED Code(s): 96660553 Plan: we will continue with ieffient ,Aspirin and also Lipitor. Not on beta diego or MADI inhibitor at this time because of low blood pressure. Patient is still intubated and going to be on a ventilator and tomorrow. Further recommendations depend upon the clinical course.
--- NOTE | 2018-12-18 15:35 | ECHOF ---
Referral Reason:Acute Inf STEMI with Cardiac Arrest--VFIB, LCX PCI MEASUREMENTS -------- HEIGHT: 180.3 cm WEIGHT: 113.9 kg BP: RVIDd: 2.3 cm (< 3.3) IVSd: 0.8 cm (0.6 - 1.1) LVIDd: 4.9 cm (3.9 - 5.3) LVPWd: 1.0 cm (0.6 - 1.1) IVSs: 1.4 cm LVIDs: 3.7 cm LVPWs: 1.1 cm Ao Diam: 3.4 cm (2.0 - 3.7) AV Cusp: 1.9 cm (1.5 - 2.6) LA Diam: 3.4 cm (2.7 - 3.8) MV EXCURSION: 18.395 mm (> 18.000) MV EF SLOPE: 295 mm/s (70 - 150) EPSS: 1.6 cm MV E Juan Ramon: 0.71 m/s MV DecT: 203 ms MV A Juan Ramon: 0.86 m/s MV E/A Ratio: 0.82 RAP: 5.00 mmHg RVSP: 26.84 mmHg FINDINGS -------- Sinus rhythm. This was a technically good study. The left ventricular size is normal. Left ventricular wall thickness is normal. Overall left vent ricular systolic function is mildly impaired with, an EF between 45 - 50 %. Mid to basal inferiorla teral is hypokinetic The right ventricle is normal in size. The left atrial size is normal. The right atrial size is normal. The aortic valve is trileaflet and appears structurally normal. The mitral valve is normal. There is trace mitral regurgitation. The tricuspid valve appears structurally normal. Trace tricuspid regurgitation present. Right lalo tricular systolic pressure is normal at < 35 mmHg. There is no pulmonic regurgitation present. The aortic root size is normal. There is no pericardial effusion. CONCLUSIONS -------- 1. Sinus rhythm. 2. This was a technically good study. 3. The left ventricular size is normal. 4. Left ventricular wall thickness is normal. 5. Overall left ventricular systolic function is mildly impaired with, an EF between 45 - 50 %. 6. Mid to basal inferiorlateral is hypokinetic 7. The right ventricle is normal in size. 8. The left atrial size is normal. 9. The right atrial size is normal. 10. The aortic valve is trileaflet and appears structurally normal. 11. The mitral valve is normal. 12. There is trace mitral regurgitation. 13. The tricuspid valve appears structurally normal. 14. Trace tricuspid regurgitation present. 15. Right ventricular systolic pressure is normal at < 35 mmHg. 16. There is no pulmonic regurgitation present. 17. The aortic root size is normal. 18. There is no pericardial effusion. LANDSCAPE MANAGER: Oma Raman RDCS
[2018-12-18] MEDS ORDERED: HYDROmorphone 2 MG TAB PO PRN (16:27)
[2018-12-18 17:46] LABS: Glucose,Whole Blood 145 mg/dL (75-99)
[2018-12-18] MEDS ORDERED: ACETAMINOPHEN IV (For NPO) 1,000 MG in EMPTY BAG 1 BAG IVPB PRN (19:00)
[2018-12-18] MEDS: LEVOFLOXACIN 750MG-D5W PMX 750 MG in DEXTROSE/WATER 1 150ML.BAG IVPB SCH (21:49)
[2018-12-18] MEDS: ACETAMINOPHEN ORAL SUSP 160 MG/5 ML CUP PO PRN (22:24)
[2018-12-19 00:06] LABS: Glucose,Whole Blood 167 mg/dL (75-99)
[2018-12-19] MEDS: HEPARIN SODIUM,PORCINE 5,000 UNIT/ML 1 ML VIAL SQ SCH ×3 (01:10→16:44)
[2018-12-19] MEDS: INSULIN ASPART (NovoLOG) 100 UNIT/ML VIAL SQ SCH ×4 (01:10→19:12)
[2018-12-19] MEDS: SODIUM CHLORIDE 0.9% 1,000 ML IV SCH ×2 (01:16→16:45)
[2018-12-19] MEDS: PROPOFOL 1,000 MG in EMPTY BAG 1 BAG IV SCH ×2 (02:58→05:21)
[2018-12-19] MEDS: IPRATROPIUM-ALBUTEROL 3 ML NEB INHALATION SCH ×5 (03:11→19:50)
[2018-12-19 04:59] LABS: ABG Base Excess -0.6 mmol/L; ABG HCO3 24 mmol/L (21-25); ABG Oxygen Saturation 95.6 % (94-97); ABG PCO2 38 mmHg (35-45); ABG PH 7.41 (7.35-7.45); ABG PO2 71 mmHg (83-108); ABG TCO2 25 mmol/L (19-24); Allen Test Performed? Yes
[2018-12-19 05:57] LABS: Glucose,Whole Blood 168 mg/dL (75-99)
--- NOTE | 2018-12-19 07:03 | XR ---
EXAMINATION TYPE: XR chest 1V DATE OF EXAM: 12/19/2018 HISTORY: mechanical ventilation . REFERENCE: Previous study dated 12/18/2018. FINDINGS: The patient remains intubated. ET tube remains in place unchanged in appearance. NG tube is present and its tip is within the stomach. There continues to be some right basilar airspace disease. There is minimal left basilar airspace dis ease. There is a small right effusion. The heart is not enlarged. The overall appearance has not gonzáles ged significantly from previous. IMPRESSION: NO SIGNIFICANT INTERVAL CHANGE IN APPEARANCE OF THE CHEST.
[2018-12-19 08:03] LABS: Basophils # (A) 0.1 k/uL (0-0.2); Basophils % (A) 1 %; Eosinophils # (A) 0.1 k/uL (0-0.7); Eosinophils % (A) 1 %; HCT 39.9 % (39.0-53.0); HGB 13.5 gm/dL (13.0-17.5); Lymphocytes % (A) 11 %; MCH 30.5 pg (25.0-35.0); MCHC 33.9 g/dL (31.0-37.0); MCV 90.1 fL (80.0-100.0); Mean Platelet Volume 8.6; Monocytes # (A) 0.4 k/uL (0-1.0); Monocytes % (A) 4 %; Neutrophils % (A) 84 %; Platelet Count 142 k/uL (150-450); RBC 4.42 m/uL (4.30-5.90); RDW 13.9 % (11.5-15.5); WBC 9.6 k/uL (3.8-10.6)
[2018-12-19 08:10] LABS: African American GFR (CKD) >90 (>60 ml/min/1.73 sqM); Anion Gap 7 mmol/L; Blood Urea Nitrogen 14 mg/dL (9-20); Calcium 8.4 mg/dL (8.4-10.2); Carbon Dioxide 24 mmol/L (22-30); Chloride 109 mmol/L (98-107); Glucose 156 mg/dL (74-99); Potassium 3.7 mmol/L (3.5-5.1); Sodium 140 mmol/L (137-145)
[2018-12-19] MEDS: PANTOPRAZOLE 40 MG/10 ML VIAL IV SCH (08:14)
[2018-12-19] MEDS: CHLORHEXIDINE GLUCONATE 15 ML CUP MUCOUS MEM SCH (08:17)
[2018-12-19 08:44] LABS: ABG Base Excess -1.5 mmol/L; ABG HCO3 23 mmol/L (21-25); ABG Oxygen Saturation 96.8 % (94-97); ABG PCO2 36 mmHg (35-45); ABG PH 7.42 (7.35-7.45); ABG PO2 79 mmHg (83-108); ABG TCO2 24 mmol/L (19-24); Allen Test Performed? Yes
--- NOTE | 2018-12-19 08:50 | P.PN ---
Subjective Progress Note Date: 12/19/18 Principal diagnosis: Witnessed cardiac arrest/ST segment elevation myocardial infarction Still intubated, patient is active when not sedated, LV function minimally impaired EF between 45 and 50% Objective - Vital Signs Vital signs: Vital Signs Temp 100.6 F H 12/19/18 04:00 Pulse 117 H 12/19/18 08:00 Resp 37 H 12/19/18 08:00 BP 111/71 12/19/18 08:00 Pulse Ox 96 12/19/18 08:00 Intake & Output 12/18/18 12/19/18 12/19/18 18:59 06:59 18:59 Intake Total 2253.000 1995 219 Output Total 1135 2130 420 Balance 1118.000 -135 -201 Weight 114 kg 114 kg Intake: IV 1650 1200 200 Magnesium Sulfate-D5w Pmx 100 1 gm In Dextrose/Water 1 100ml.bag @ 100 mls/hr IVPB Q1H [facility] Rx#: [id number] Potassium Chloride 10 meq 100 In Water For Injection 1 100ml.bag @ 100 mls/hr IVPB Q1H [facility] Rx#: [id number] Potassium Phosphate 10 250 mmol In Sodium Chloride 0 .9% 250 ml @ 125 mls/hr IV ONCE ONE Rx#:[id number] Sodium Chloride 0.9% 1, 1200 1200 200 000 ml @ 100 mls/hr IV . Q10H [facility] Rx#:[id number] Intake, IV Titration 565.000 450 Amount Levofloxacin 750Mg-D5w 150 Pmx 750 mg In Dextrose/ Water 1 150ml.bag @ 100 mls/hr IVPB Q24H [facility] Rx#: [id number] Propofol 1,000 mg In 565.000 300 Empty Bag 1 bag @ Titrate IV .Q0M [facility] Rx#: [id number] Tube Feeding 38 285 19 Other 60 Output: Urine 1135 2130 420 Other: Voiding Method Indwelling Catheter Indwelling Catheter ABP, PAP, CO, CI - Last Documented Arterial Blood Pressure 142/75 - Exam General: Patient intubated, sedated HEENT: [PERRL. EOMI. No pharyngeal erythema or exudate.] Neck: [No adenopathy.] Cardiac: [Heart regular in rate and rhythm. No S3. No S4. No clicks, rubs. No murmur.] Lungs: [Clear to auscultation bilaterally.] Abdomen: [No mass. No organomegaly. Bowel sounds presnt and normoactive in all 4 quadrants.] Extremes: [No edema no cyanosis : [] Musculoskeletal: [No joint erythema, edema or tenderness.] Skin: [No rash.] Neurologic: Patient is still sedated Lymphatic: [No adenopathy.] - Labs CBC & Chem 7: 12/19/18 04:45 12/19/18 04:45 Labs: Abnormal Lab Results - Last 24 Hours (Table) 12/18/18 12/18/18 12/19/18 Range/Units 11:45 17:44 00:03 Plt Count (150-450) k/uL Neutrophils # (1.3-7.7) k/uL ABG pO2 (83-108) mmHg ABG Total CO2 (19-24) mmol/L Chloride (98-107) mmol/L Glucose (74-99) mg/dL POC Glucose (mg/dL) 153 H 145 H 167 H (75-99) mg/dL 12/19/18 12/19/18 12/19/18 Range/Units 04:45 04:45 04:55 Plt Count 142 L (150-450) k/uL Neutrophils # 8.0 H (1.3-7.7) k/uL ABG pO2 71 L (83-108) mmHg ABG Total CO2 25 H (19-24) mmol/L Chloride 109 H (98-107) mmol/L Glucose 156 H (74-99) mg/dL POC Glucose (mg/dL) (75-99) mg/dL 12/19/18 Range/Units 05:55 Plt Count (150-450) k/uL Neutrophils # (1.3-7.7) k/uL ABG pO2 (83-108) mmHg ABG Total CO2 (19-24) mmol/L Chloride (98-107) mmol/L Glucose (74-99) mg/dL POC Glucose (mg/dL) 168 H (75-99) mg/dL Microbiology - Last 24 Hours (Table) 12/18/18 02:50 Gram Stain - Preliminary Sputum Sputum Culture - Preliminary Assessment and Plan (1) Acute myocardial infarction Current Visit: Yes Status: Acute Code(s): I21.9 - ACUTE MYOCARDIAL INFARCT ION, UNSPECIFIED SNOMED Code(s): 99506504 (2) Acute respiratory failure Current Visit: Yes Status: Acute Code(s): J96.00 - ACUTE RESPIRATORY FAILURE, UNSP W HYPOXIA OR HYPERCAPNIA SNOMED Code(s): 57293356 (3) Cardiac arrest Current Visit: Yes Status: Acute Code(s): I46.9 - CARDIAC ARREST, CAUSE UNSPECIFIED SNOMED Code(s): 324532553 (4) Cardiac arrest with ventricular fibrillation Current Visit: Yes Status: Acute Code(s): I46.9 - CARDIAC ARREST, CAUSE UNSPECIFIED; I49.01 - VENTRICULAR FIBRILLATION SNOMED Code(s): 75804002 (5) Signs of return of spontaneous circulation Current Visit: Yes Status: Acute Code(s): DBC9402 - SNOMED Code(s): 299955988 Plan: Patient currently intubated, sedated IV antibiotics Single vessel coronary artery disease/intervention to include angioplasty with stent placement Echocardiogram reviewed Large volume gastric aspiration Will follow closely Time with Patient: Greater than 30
--- NOTE | 2018-12-19 09:24 | P.PN ---
Subjective Progress Note Date: 12/19/18 this is a 48-year-old gentleman who was admitted following cardiac arrest with documented ventricular fibrillation. This is preceded by chest pain. Patient had a cardiac catheterization and stent placement of the circumflex in the setting of acute myocardial infarction. It appears that patient might have had aspiration pneumonia. Patient is still intubated and sedated. Apparently when he is less sedated. Patient was moving all extremitiesand responding to verbal commands. His pupils are equal and reactive. He is in sinus rhythm. His blood pressures are running on the low side in the range of 9200 systolic. His urine output is good. His lab work showsnormal hemoglobin, normal electrolytes except low magnesium level. This is being corrected. His troponin went up 9.05. Overall patient seemed to be hemodynamically stable. Mental status seemed to be reasonable at this time. 12/19/2018: This patient is doing better. He is extubated today. His chest which are better. He seemed to be alert and oriented. Denies any chest pain or shortness of breath. No arrhythmias are detected. Vital signs are stable. Lab values are normal. He will be started on by mouth medication if his swallowing mechanism is normal. We'll increase his activity gradually. Overall patient seemed to be doing well at this point Objective - Vital Signs Vital signs: Vital Signs Temp 100.4 F H 12/19/18 08:00 Pulse 117 H 12/19/18 08:00 Resp 37 H 12/19/18 08:00 BP 111/71 12/19/18 08:00 Pulse Ox 96 12/19/18 08:00 Intake & Output 12/18/18 12/19/18 12/19/18 18:59 06:59 18:59 Intake Total 2253.000 1995 238 Output Total 1135 2130 420 Balance 1118.000 -135 -182 Weight 114 kg 114 kg Intake: IV 1650 1200 200 Magnesium Sulfate-D5w Pmx 100 1 gm In Dextrose/Water 1 100ml.bag @ 100 mls/hr IVPB Q1H [facility] Rx#: [id number] Potassium Chloride 10 meq 100 In Water For Injection 1 100ml.bag @ 100 mls/hr IVPB Q1H [facility] Rx#: [id number] Potassium Phosphate 10 250 mmol In Sodium Chloride 0 .9% 250 ml @ 125 mls/hr IV ONCE ONE Rx#:[id number] Sodium Chloride 0.9% 1, 1200 1200 200 000 ml @ 100 mls/hr IV . Q10H [facility] Rx#:[id number] Intake, IV Titration 565.000 450 Amount Levofloxacin 750Mg-D5w 150 Pmx 750 mg In Dextrose/ Water 1 150ml.bag @ 100 mls/hr IVPB Q24H [facility] Rx#: [id number] Propofol 1,000 mg In 565.000 300 Empty Bag 1 bag @ Titrate IV .Q0M [facility] Rx#: [id number] Tube Feeding 38 285 38 Other 60 Output: Urine 1135 2130 420 Other: Voiding Method Indwelling Catheter Indwelling Catheter Indwelling Catheter ABP, PAP, CO, CI - Last Documented Arterial Blood Pressure 142/75 - Exam GENERAL EXAM: Patient is ntubated and sedated. HEENT: Normocephalic. Normal reaction of pupils, equal size, normal range of extraocular motion. No erythema or exudates in the throat. NECK: No masses, no nuchal rigidity. CHEST: No chest wall deformity. LUNGS: Decreased air entry at the bases HEART: [S1 and S2 normal with no audible mumurs or gallops. Regular rhythm, f emorals equal on both sides.. ABDOMEN: No hepatosplenomegaly, normal bowel sounds, no guarding or rigidity. SKIN: No rashes CENTRAL NERVOUS SYSTEM: sedated and unresponsive, deferred EXTREMITIES: No cyanosis, clubbing or edema. - Labs CBC & Chem 7: 12/19/18 04:45 12/19/18 04:45 Labs: Abnormal Lab Results - Last 24 Hours (Table) 12/18/18 12/18/18 12/19/18 Range/Units 11:45 17:44 00:03 Plt Count (150-450) k/uL Neutrophils # (1.3-7.7) k/uL ABG pO2 (83-108) mmHg ABG Total CO2 (19-24) mmol/L Chloride (98-107) mmol/L Glucose (74-99) mg/dL POC Glucose (mg/dL) 153 H 145 H 167 H (75-99) mg/dL 12/19/18 12/19/18 12/19/18 Range/Units 04:45 04:45 04:55 Plt Count 142 L (150-450) k/uL Neutrophils # 8.0 H (1.3-7.7) k/uL ABG pO2 71 L (83-108) mmHg ABG Total CO2 25 H (19-24) mmol/L Chloride 109 H (98-107) mmol/L Glucose 156 H (74-99) mg/dL POC Glucose (mg/dL) (75-99) mg/dL 12/19/18 12/19/18 Range/Units 05:55 08:42 Plt Count (150-450) k/uL Neutrophils # (1.3-7.7) k/uL ABG pO2 79 L (83-108) mmHg ABG Total CO2 (19-24) mmol/L Chloride (98-107) mmol/L Glucose (74-99) mg/dL POC Glucose (mg/dL) 168 H (75-99) mg/dL Microbiology - Last 24 Hours (Table) 12/18/18 02:50 Gram Stain - Preliminary Sputum Sputum Culture - Preliminary Assessment and Plan (1) Acute myocardial infarction Current Visit: Yes Status: Acute Code(s): I21.9 - ACUTE MYOCARDIAL INFARCTION, UNSPECIFIED SNOMED Code(s): 68554931 (2) Acute respiratory failure Current Visit: Yes Status: Acute Code(s): J96.00 - ACUTE RESPIRATORY FAILUR E, UNSP W HYPOXIA OR HYPERCAPNIA SNOMED Code(s): 89997001 (3) Cardiac arrest Current Visit: Yes Status: Acute Code(s): I46.9 - CARDIAC ARREST, CAUSE UNSPECIFIED SNOMED Code(s): 501058331 (4) Cardiac arrest with ventricular fibrillation Current Visit: Yes Status: Acute Code(s): I46.9 - CARDIAC ARREST, CAUSE UNSPECIFIED; I49.01 - VENTRICULAR FIBRILLATION SNOMED Code(s): 70992380 Plan: Patient is extubated. Alert and oriented. No complaints at this time. Continue current medical therapy. Increase activity. May need some physical therapy
--- NOTE | 2018-12-19 10:29 | PN ---
PROGRESS NOTE DATE OF SERVICE: December 19, 2018 Critical care time is 35 minutes. This is a 48-year-old male who apparently had witnessed ventricular fibrillation cardiopulmonary arrest while playing some baseball. The patient apparently was defibrillated 3 times by EMS. The patient had a difficult intubation in the emergency room and the patient likely aspirated. He did have an ST-segment elevation myocardial infarction involving the inferior wall and had a stent placed in his circumflex coronary artery by Cardiology. Currently, he remains on the mechanical ventilator. His vent settings include the volume assist-control mode rate of 22, tidal volume 500, FiO2 of 30%, PEEP of 10. Blood gases show PO2 of 71, pCO2 of 38, pH 7.41. He is getting saline at 100 mL an hour, propofol at 55 mcg/kg per minute. He does have a history of diabetes mellitus and hyperlipidemia. I did talk to the family yesterday. He had a pretty uneventful night according to the nurses. We did start him on some Levaquin because his sputum did show some gram-negative bacilli. It has not been identified as yet. He may have only had a gastric acid aspiration rather than an oropharyngeal aspiration. PHYSICAL EXAMINATION: VITAL SIGNS: Current vital signs are reviewed. His temperature is 100.6. Heart rate about 113. Respiratory rate 26. Blood pressure 126/69, mean is 82 and saturations are 97% on 30% and 10 of PEEP. Appears in no acute distress. HEENT examination is grossly unremarkable. There is an orally placed endotracheal tube and NG tube. Mucous membranes are dry. NECK: Supple. Full range of motion. No adenopathy, thyromegaly or neck vein distention. CARDIOVASCULAR examination reveals regular rhythm and rate. He is tachycardic. Heart rate about 110. S1, S2 normal. LUNGS: Reveal coarse rhonchi. Breath sounds equal. No wheezes or crackles. ABDOMEN: Soft. Bowel sounds are heard. EXTREMITIES are intact. No cyanosis, clubbing, or edema. SKIN: Without rash. NEUROLOGIC examination could not be adequately assessed because the patient is so heavily sedated. Microbiologic data has been mentioned. The sputum sample shows evidence of a few white blood cells, many gram-negative bacilli and moderate gram-positive cocci. No identification as yet. LABS: Reviewed. The only thing back on this patient so far is his blood gas. No other labs are noted. Yesterday, he had a troponin that was 9.050. Chest x-ray done on the shows similar appearing chest x-ray which shows diffuse bilateral airspace disease and particularly in the right base, left mid lung, left upper lobe. There is also small right-sided pleural effusion. Medications are reviewed. He remains on all the appropriate medications including a recently added Levaquin. ASSESSMENT: 1. Drb-ci-iurerqon ventricular fibrillation cardiopulmonary arrest, status post defibrillation x3 and subsequent PCI with stenting of the circumflex coronary artery. 2. ST-segment elevation inferior wall myocardial infarction. 3. Hypoxemic respiratory failure requiring intubation and mechanical ventilation. 4. Large volume gastric aspiration. 5. History of diabetes. 6. History of hyperlipidemia. 7. Family history of cardiac disease. 8. Multiple electrolyte disturbances, improved. PLAN: An art line was placed yesterday. The patient has adequate IV access. His oxygenation has improved. We will do a daily interruption of sedation. We may do a spontaneous breathing trial. Medications are reviewed. Remains on Levaquin. Rest of the medications are appropriate. I will talk to the family once he is evaluated later today. Additional recommendations and suggestions forthcoming. Critical care time 35 minutes. MMODL / IJN: [id number] /
[2018-12-19] MEDS ORDERED: IPRATROPIUM-ALBUTEROL 3 ML NEB INHALATION PRN (11:33)
[2018-12-19 12:08] LABS: Glucose,Whole Blood 141 mg/dL (75-99)
[2018-12-19] MEDS: NOREPINEPHRINE 4 MG in SODIUM CHLORIDE 0.9% 250 ML IV SCH (16:31)
[2018-12-19] MEDS: PRASUGREL 10 MG TAB PO SCH (16:44)
[2018-12-19] MEDS: ATORVASTATIN 80 MG TAB PO SCH (16:44)
[2018-12-19] MEDS: ASPIRIN 81 MG PO SCH (16:44)
[2018-12-19 19:11] LABS: Glucose,Whole Blood 103 mg/dL (75-99)
[2018-12-19 21:02] LABS: Glucose,Whole Blood 90 mg/dL (75-99)
[2018-12-19] MEDS: ACETAMINOPHEN ORAL SUSP 160 MG/5 ML CUP PO PRN (22:10)
[2018-12-19] MEDS: LEVOFLOXACIN 750MG-D5W PMX 750 MG in DEXTROSE/WATER 1 150ML.BAG IVPB SCH (22:13)
[2018-12-20] MEDS: SODIUM CHLORIDE 0.9% 1,000 ML IV SCH ×3 (00:07→21:15)
[2018-12-20] MEDS: HEPARIN SODIUM,PORCINE 5,000 UNIT/ML 1 ML VIAL SQ SCH ×3 (00:14→16:51)
[2018-12-20] MEDS: HYDROmorphone 2 MG/ML 1 ML SYRINGE IVP PRN ×2 (04:13→15:40)
[2018-12-20] MEDS: IPRATROPIUM-ALBUTEROL 3 ML NEB INHALATION SCH ×4 (06:26→20:01)
[2018-12-20 06:53] LABS: Basophils % (A) 0 %; Eosinophils # (A) 0.2 k/uL (0-0.7); Eosinophils % (A) 2 %; HCT 38.1 % (39.0-53.0); HGB 12.5 gm/dL (13.0-17.5); Lymphocytes # (A) 0.9 k/uL (1.0-4.8); Lymphocytes % (A) 11 %; MCH 29.2 pg (25.0-35.0); MCHC 32.8 g/dL (31.0-37.0); MCV 89.1 fL (80.0-100.0); Mean Platelet Volume 9.8; Monocytes # (A) 0.2 k/uL (0-1.0); Monocytes % (A) 3 %; Neutrophils # (A) 6.3 k/uL (1.3-7.7); Neutrophils % (A) 82 %; Platelet Count 122 k/uL (150-450); RBC 4.27 m/uL (4.30-5.90); RDW 13.2 % (11.5-15.5); WBC 7.7 k/uL (3.8-10.6)
[2018-12-20 06:54] LABS: Glucose,Whole Blood 145 mg/dL (75-99)
[2018-12-20] MEDS: INSULIN ASPART (NovoLOG) 100 UNIT/ML VIAL SQ SCH ×4 (07:03→21:11)
[2018-12-20 07:07] LABS: African American GFR (CKD) >90 (>60 ml/min/1.73 sqM); Anion Gap 3 mmol/L; Blood Urea Nitrogen 10 mg/dL (9-20); Calcium 8.5 mg/dL (8.4-10.2); Carbon Dioxide 26 mmol/L (22-30); Chloride 110 mmol/L (98-107); Glucose 141 mg/dL (74-99); Phosphorus 2.2 mg/dL (2.5-4.5); Potassium 3.8 mmol/L (3.5-5.1); Sodium 139 mmol/L (137-145)
--- NOTE | 2018-12-20 08:19 | P.PN ---
Subjective Progress Note Date: 12/20/18 On 12/20/2018 of seeing this patient for a follow-up. His post cardiac arrest. The patient was given CPR. The patient was defibrillated for V. fib. The patient was intubated on the field. The patient was brought into the hospital and the patient was found to have a acute STEMI and the patient underwent stat cardiac catheterization with the patient was found to have a circumflex lesion that was stented. Following that the patient was brought into the ICU. He was weaned off the mechanical ventilator yesterday was extubated without any major difficulties. This morning he is hemodynamically stable. He is in a sinus rhythm. History of any chest pain. He is awake and alert and following comma nds and answering questions appropriately. There is no focal neurological deficit. Echocardiogram showed ejection fraction of 40-45%. Chest the from yesterday showed a possible right lower lobe aspiration pneumonia and the patient is currently on IV Levaquin. From the cardiac standpoint, the patient is on aspirin, Effient, metoprolol 25 mg twice a day. He is also on high-dose statins. I saw count is normal. Renal function is normal. No other issues for now and Objective - Vital Signs Vital signs: Vital Signs Temp 98.6 F 12/20/18 04:00 Pulse 100 12/20/18 06:35 Resp 24 12/20/18 06:00 BP 125/78 12/20/18 02:00 Pulse Ox 90 L 12/20/18 06:00 Intake & Output 12/19/18 12/20/18 12/20/18 18:59 06:59 18:59 Intake Total 1238 2430 Output Total 1252024 Balance -12 405 Weight 114.6 kg Intake: IV 1200 1350 Levofloxacin 750Mg-D5w 150 Pmx 750 mg In Dextrose/ Water 1 150ml.bag @ 100 mls/hr IVPB Q24H [facility] Rx#: [id number] Sodium Chloride 0.9% 1, 1200 300 000 ml @ 100 mls/hr IV . Q10H [facility] Rx#:[id number] Sodium Chloride 0.9% 1, 900 000 ml @ 100 mls/hr IV . Q10H [facility] Rx#:[id number] Oral 1080 Tube Feeding 38 Output: Urine 1250 2024 Other: Voiding Method Indwelling Catheter Indwelling Catheter ABP, PAP, CO, CI - Last Documented Arterial Blood Pressure 115/69 - Exam The patient appeared well nourished and normally developed. Vital signs as doc umented. Head exam is unremarkable. No scleral icterus or corneal arcus noted. Neck is without jugular venous distension, thyromegaly, or carotid bruits. Carotid upstrokes are brisk bilaterally. Lungs are clear to auscultation and percussion. Cardiac exam reveals the PMI to be normally sized and situated. Rhythm is regular. First and second heart sounds normal. No murmurs, rubs or gallops. Abdominal exam reveals normal bowel sounds, no masses, no organomegaly and no aortic enlargement. Extremities are nonedematous and both femoral and pedal pulses are normal.Examination of the skin revealed no evidence of significant rashes, suspicious appearing nevi or other concerning lesions. Neurologically the patient is awake and alert and there is no focal neurological deficit. - Labs CBC & Chem 7: 12/20/18 05:42 12/20/18 05:42 Labs: Abnormal Lab Results - Last 24 Hours (Table) 12/19/18 12/19/18 12/19/18 Range/Units 04:45 08:42 12:07 RBC (4.30-5.90) m/uL Hgb (13.0-17.5) gm/dL Hct (39.0-53.0) % Plt Count (150-450) k/uL Lymphocytes # (1.0-4.8) k/uL ABG pO2 79 L (83-108) mmHg Chloride 109 H (98-107) mmol/L Glucose 156 H (74-99) mg/dL POC Glucose (mg/dL) 141 H (75-99) mg/dL Phosphorus (2.5-4.5) mg/dL 12/19/18 12/20/18 12/20/18 Range/Units 19:09 05:42 05:42 RBC 4.27 L (4.30-5.90) m/uL Hgb 12.5 L (13.0-17.5) gm/dL Hct 38.1 L (39.0-53.0) % Plt Count 122 L (150-450) k/uL Lymphocytes # 0.9 L (1.0-4.8) k/uL ABG pO2 (83-108) mmHg Chloride 110 H (98-107) mmol/L Glucose 141 H (74-99) mg/dL POC Glucose (mg/dL) 103 H (75-99) mg/dL Phosphorus 2.2 L (2.5-4.5) mg/dL 12/20/18 Range/Units 06:52 RBC (4.30-5.90) m/uL Hgb (13.0-17.5) gm/dL Hct (39.0-53.0) % Plt Count (150-450) k/uL Lymphocytes # (1.0-4.8) k/uL ABG pO2 (83-108) mmHg Chloride (98-107) mmol/L Glucose (74-99) mg/dL POC Glucose (mg/dL) 145 H (75-99) mg/dL Phosphorus (2.5-4.5) mg/dL Microbiology - Last 24 Hours (Table) 12/18/18 02:50 Gram Stain - Preliminary Sputum Sputum Culture - Preliminary Assessment and Plan Plan: 1 acute cardiac arrest, post resuscitation with CPR and defibrillation 3 with subsequent PCI of the circumflex and methodist of circulation. No signs of any neurologic damage this point in time the patient is hemodynamically stable 2 acute hypoxic respiratory failure secondary to above, recovered and the patient is extubated and the patient is currently being treated for an aspiration pneumonia 3 acute STEMI involving the inferior wall, post cardiac catheterization and stenting of the circumflex coronary artery 4 large volume gastric aspiration 5 diabetes mellitus 6 hypertension 7 hyperlipidemia 8 cardiac family history Plan Will be reviewing the chest x-ray once available. We'll continue the Levaquin for now. We'll start the patient on beta blockers. We'll start the patient on losartan. Continue aspirin. Continue Effient. Encourage activity and mobility. Echocardiogram was noted. No other significant issues for now. He will be downgraded to selective telemetry unit. We'll remove the Artline catheter. We'll remove the Bailey catheter. We increased level of activity as tolerated. We'll continue to follow.
[2018-12-20] MEDS: PANTOPRAZOLE 40 MG/10 ML VIAL IV SCH (08:39)
[2018-12-20] MEDS: ATORVASTATIN 80 MG TAB PO SCH (08:41)
[2018-12-20] MEDS: METOPROLOL TARTRATE 25 MG TAB PO SCH ×2 (08:41→21:11)
[2018-12-20] MEDS: ASPIRIN 81 MG PO SCH (08:41)
[2018-12-20] MEDS: PRASUGREL 10 MG TAB PO SCH (08:41)
--- NOTE | 2018-12-20 10:34 | PN ---
PROGRESS NOTE This is a 48-year-old gentleman who is admitted to hospital with cardiac arrest, underwent cardiac catheterization, angioplasty of [place] circumflex coronary artery. He had aspiration pneumonia, was intubated and sedated. At the time of my evaluation this morning, he appears comfortable at rest and is free of significant symptoms. The patient's heart rate is elevated at 100 beats per minute. Blood pressure is 115/69. Chest exam reveals occasional rhonchi bilaterally. Heart exam reveals first and second heart sounds. No gallop. No murmur. No rub. Abdomen is soft. Examination of extremities did not reveal any edema. Peripheral pulses are felt. The patient is currently on aspirin, Lipitor, Cozaar, Lopressor and Effient. LABS: Labs show a hemoglobin of 12.5. Potassium is ASSESSMENT: Acute myocardial infarction with cardiac arrest. PLAN: Patient is doing much better from cardiac standpoint, He will continue with current medications including the beta diego that has been added this morning. MMODL / IJN: [id number] /
[2018-12-20 11:49] LABS: Glucose,Whole Blood 138 mg/dL (75-99)
[2018-12-20] MEDS: ACETAMINOPHEN TAB 325 MG TAB PO PRN ×2 (13:19→21:12)
--- NOTE | 2018-12-20 14:30 | XR ---
EXAMINATION TYPE: XR chest 1V DATE OF EXAM: 12/20/2018 COMPARISON: 12/19/2018 HISTORY: Chest pain TECHNIQUE: Single frontal view of the chest is obtained. FINDINGS: NG and endotracheal tubes have been removed. No evidence for pneumothorax. Persistent perihilar infiltrates noted although there is slight improvement at the lung bases. Correl ate for underlying pneumonia. Cardiomediastinal silhouette is stable. IMPRESSION: 1. Persistent perihilar infiltrates noted although there is slight improvement at the lung bases. Co rrelate for underlying pneumonia.
[2018-12-20 16:58] LABS: Glucose,Whole Blood 100 mg/dL (75-99)
--- NOTE | 2018-12-20 17:32 | XR ---
EXAMINATION TYPE: XR shoulder limited RT DATE OF EXAM: 12/20/2018 CLINICAL HISTORY: Right shoulder pain after fall injury. TECHNIQUE: Portable Frontal and lateral views of the right shoulder are obtained. COMPARISON: None. FINDINGS: There is no acute fracture/dislocation evident in the right shoulder. There is mild to mod erate narrowing with mild spurring at acromioclavicular joint. Glenohumeral joint is maintained. The visualized ribs are intact and unremarkable. IMPRESSION: There is no acute fracture or dislocation in the right shoulder.
--- NOTE | 2018-12-20 17:58 | P.PN ---
Subjective Progress Note Date: 12/21/18 Witnessed cardiac arrest/ST segment elevation myocardial infarction Still intubated, patient is active when not sedated, LV function minimally impaired EF between 45 and 50% 12/20/2018 status post cardiac cath with stenting of the circumflex, EF 40-45%. Extubated yesterday. Maintaining O2 sats in the high 90s on 3 L nasal cannula. Continues on beta diego, Effient, aspirin, statin. CXR reporting possible right aspiration lower lobe pneumonia. Maintained on Levaquin IV. Telemetry sinus rhythm. Complains of significant right shoulder pain.VSS. Objective - Vital Signs Vital signs: Vital Signs Temp 98.6 F 12/20/18 04:00 Pulse 100 12/20/18 06:35 Resp 24 12/20/18 06:00 BP 125/78 12/20/18 02:00 Pulse Ox 90 L 12/20/18 06:00 Intake & Output 12/19/18 12/20/18 12/20/18 18:59 06:59 18:59 Intake Total 1238 2430 200 Output Total 1250 2024 100 Balance -12 405 100 Weight 114.6 kg Intake: IV 1200 1350 200 Levofloxacin 750Mg-D5w 150 Pmx 750 mg In Dextrose/ Water 1 150ml.bag @ 100 mls/hr IVPB Q24H [facility] Rx#: [id number] Sodium Chloride 0.9% 1, 1200 300 000 ml @ 100 mls/hr IV . Q10H [facility] Rx#:[id number] Sodium Chloride 0.9% 1, 900 200 000 ml @ 100 mls/hr IV . Q10H [facility] Rx#:[id number] Oral 1080 Tube Feeding 38 Output: Urine 1250 202 100 Other: Voiding Method Indwelling Catheter Indwelling Catheter Indwelling Catheter ABP, PAP, CO, CI - Last Documented Arterial Blood Pressure 115/69 - Exam General: Sitting up in bed, alert and oriented 3, no acute distress HEENT: [PERRL. EOMI. No pharyngeal erythema or exudate.] Neck: [No adenopathy.] Cardiac: [Heart regular in rate and rhythm. No S3. No S4. No clicks, rubs. No murmur.] Lungs: [Clear to auscultation bilaterally.] Abdomen: [No mass. No organomegaly. Bowel sounds presnt and normoactive in all 4 quadrants.] Extremes: [No edema no cyanosis Musculoskeletal: [No joint erythema, edema or tenderness.] Skin: [No rash.] Neurologic: No focal deficits Lymphatic: [No adenopathy.] - Labs CBC & Chem 7: 12/20/18 05:42 12/20/18 05:42 Labs: Abnormal Lab Results - Last 24 Hours (Table) 12/19/18 12/19/18 12/20/18 Range/Units 12:07 19:09 05:42 RBC 4.27 L (4.30-5.90) m/uL Hgb 12.5 L (13.0-17.5) gm/dL Hct 38.1 L (39.0-53.0) % Plt Count 122 L (150-450) k/uL Lymphocytes # 0.9 L (1.0-4.8) k/uL Chloride (98-107) mmol/L Glucose (74-99) mg/dL POC Glucose (mg/dL) 141 H 103 H (75-99) mg/dL Phosphorus (2.5-4.5) mg/dL 12/20/18 12/20/18 Range/Units 05:42 06:52 RBC (4.30-5.90) m/uL Hgb (13.0-17.5) gm/dL Hct (39.0-53.0) % Plt Count (150-450) k/uL Lymphocytes # (1.0-4.8) k/uL Chloride 110 H (98-107) mmol/L Glucose 141 H (74-99) mg/dL POC Glucose (mg/dL) 145 H (75-99) mg/dL Phosphorus 2.2 L (2.5-4.5) mg/dL Microbiology - Last 24 Hours (Table) 12/18/18 02:50 Gram Stain - Preliminary Sputum Sputum Culture - Preliminary Assessment and Plan Assessment: (1) Acute myocardial infarction,(STEMI) status post cardiac catheterization with stenting of the circumflex Current Visit: Yes Status: Acute Code(s): I21.9 - ACUTE MYOCARDIAL INFARCTION, UNSPECIFIED SNOMED Code(s): 41122024 (2) Acute respiratory failure Current Visit: Yes Status: Acute Code(s): J96.00 - ACUTE RESPIRATORY FAILURE, UNSP W HYPOXIA OR HYPERCAPNIA SNOMED Code(s): 39724081 -Acute aspiration pneumonia, right basilar (3) Cardiac arrest Current Visit: Yes Status: Acute Code(s): I46.9 - CARDIAC ARREST, CAUSE UNSPECIFIED SNOMED Code(s): 528725056 (4) Cardiac arrest with ventricular fibrillation Current Visit: Yes Status: Acute Code(s): I46.9 - CARDIAC ARREST, CAUSE UNSPECIFIED; I49.01 - VENTRICULAR FIBRILLATION SNOMED Code(s): 30185096 (5) Signs of return of spontaneous circulation Current Visit: Yes Status: Acute Code(s): CED0166 - SNOMED Code(s): 013623330 (6) large volume Gastric aspiration Plan: Continue on current medication regime ,monitoring and symptomatic treatment. Shoulder x-ray ordered. Tolerated. Retained IV antibiotics. Closely by electrical accessories ii assembler to be transferred to telemetry unit. Further recommendations to follow. The impression and plan of care has been dictated as directed. : I performed a history and examination of this patient, discussed the same with the dictator. I agree with the dictator's note ,documented as a scribe. Any additional findings or plans will be noted.
[2018-12-20 20:54] LABS: Glucose,Whole Blood 103 mg/dL (75-99)
[2018-12-20] MEDS: LEVOFLOXACIN 750MG-D5W PMX 750 MG in DEXTROSE/WATER 1 150ML.BAG IVPB SCH (21:12)
[2018-12-20] MEDS ORDERED: MELATONIN 3 MG TABLET PO PRN (21:22)
[2018-12-20] MEDS: LOSARTAN 25 MG TAB PO SCH (22:15)
[2018-12-21] MEDS: HEPARIN SODIUM,PORCINE 5,000 UNIT/ML 1 ML VIAL SQ SCH ×3 (00:56→17:31)
[2018-12-21 05:23] LABS: Basophils % (A) 0 %; Eosinophils # (A) 0.3 k/uL (0-0.7); Eosinophils % (A) 3 %; HCT 39.1 % (39.0-53.0); HGB 12.6 gm/dL (13.0-17.5); Lymphocytes # (A) 0.7 k/uL (1.0-4.8); Lymphocytes % (A) 8 %; MCH 29.2 pg (25.0-35.0); MCHC 32.2 g/dL (31.0-37.0); MCV 90.5 fL (80.0-100.0); Mean Platelet Volume 7.9; Monocytes # (A) 0.4 k/uL (0-1.0); Monocytes % (A) 5 %; Neutrophils # (A) 6.9 k/uL (1.3-7.7); Neutrophils % (A) 81 %; Platelet Count 143 k/uL (150-450); RBC 4.32 m/uL (4.30-5.90); RDW 13.1 % (11.5-15.5); WBC 8.5 k/uL (3.8-10.6)
[2018-12-21 05:33] LABS: African American GFR (CKD) >90 (>60 ml/min/1.73 sqM); Anion Gap 8 mmol/L; Blood Urea Nitrogen 12 mg/dL (9-20); Calcium 8.6 mg/dL (8.4-10.2); Carbon Dioxide 25 mmol/L (22-30); Chloride 105 mmol/L (98-107); Glucose 128 mg/dL (74-99); Potassium 3.6 mmol/L (3.5-5.1); Sodium 138 mmol/L (137-145)
[2018-12-21] MEDS: SODIUM CHLORIDE 0.9% 1,000 ML IV SCH ×2 (06:39→17:26)
[2018-12-21 06:47] LABS: Glucose,Whole Blood 143 mg/dL (75-99)
[2018-12-21] MEDS: INSULIN ASPART (NovoLOG) 100 UNIT/ML VIAL SQ SCH ×3 (07:13→21:22)
--- NOTE | 2018-12-21 07:41 | P.PN ---
Subjective Progress Note Date: 12/21/18 On 12/20/2018 of seeing this patient for a follow-up. His post cardiac arrest. The patient was given CPR. The patient was defibrillated for V. fib. The patient was intubated on the field. The patient was brought into the hospital and the patient was found to have a acute STEMI and the patient underwent stat cardiac catheterization with the patient was found to have a circumflex lesion that was stented. Following that the patient was brought into the ICU. He was weaned off the mechanical ventilator yesterday was extubated without any major difficulties. This morning he is hemodynamically stable. He is in a sinus rhythm. History of any chest pain. He is awake and alert and following comma nds and answering questions appropriately. There is no focal neurological deficit. Echocardiogram showed ejection fraction of 40-45%. Chest the from yesterday showed a possible right lower lobe aspiration pneumonia and the patient is currently on IV Levaquin. From the cardiac standpoint, the patient is on aspirin, Effient, metoprolol 25 mg twice a day. He is also on high-dose statins. I saw count is normal. Renal function is normal. No other issues for now Today's evaluation of seeing this patient for a follow-up. Patient is doing well. No specific complaints. No cardiac arrhythmias. No issues with blood pressure with chest pain. He has developed a skin sore over the anterior chest at the site of the defibrillation. He is also in some soreness over the anterior chest area. Noted the patient is recovering from acute STEMI. He has no cardiac arrhythmias. Hemodynamically stable. His son there will antiplatelet agent in addition to beta diego and angiotensin receptor 2 inhibitor. He is also on high-dose statin. The patient has been without oxygen. This morning it is on room air oxygen and his pulse ox is around 90%. He still has some extensive consolidation of the right lung related to massive aspiration pneumonia. He is less tachycardic compared to yesterday. His heart rate is still sinus down to 93. The sputum sample is negative for any microbial growth. He remains on IV Levaquin. He is also receiving DuoNeb nebulized treatments 4 times a day [id number]. He did have a temperature yesterday of 101.6. Objective - Vital Signs Vital signs: Vital Signs Temp 98.9 F 12/21/18 04:00 Pulse 93 12/21/18 07:00 Resp 28 H 12/21/18 07:00 BP 124/78 12/21/18 04:00 Pulse Ox 90 L 12/21/18 04:00 Intake & Output 12/20/18 12/21/18 12/21/18 18:59 06:59 18:59 Intake Total 500 2050 Output Total 235 200 Balance 265 1850 Weight 114.8 kg Intake: IV 500 1750 Levofloxacin 750Mg-D5w 150 Pmx 750 mg In Dextrose/ Water 1 150ml.bag @ 100 mls/hr IVPB Q24H [facility] Rx#: [id number] Sodium Chloride 0.9% 1, 500 1600 000 ml @ 100 mls/hr IV . Q10H [facility] Rx#:[id number] Oral 300 Output: Urine 235 200 Other: Voiding Method Indwelling Catheter Indwelling Catheter ABP, PAP, CO, CI - Last Documented Arterial Blood Pressure 119/75 - Exam The patient appeared well nourished and normally developed. Vital signs as documented. Head exam is unremarkable. No scleral icterus or corneal arcus noted. Neck is without jugular venous distension, thyromegaly, or carotid bruits. Carotid upstrokes are brisk bilaterally. Lungs are clear to auscultation and percussion. Cardiac exam reveals the PMI to be normally sized and situated. Rhythm is regular. First and second heart sounds normal. No murmurs, rubs or gallops. Abdominal exam reveals normal bowel sounds, no masses, no organomegaly and no aortic enlargement. Extremities are nonedematous and both femoral and pedal pulses are normal.Examination of the skin revealed no evidence of significant rashes, suspicious appearing nevi or other concerning lesions. Neurologically the patient is awake and alert and there is no focal neurological deficit. - Labs CBC & Chem 7: 12/21/18 04:41 12/21/18 04:41 Labs: Abnormal Lab Results - Last 24 Hours (Table) 12/20/18 12/20/18 12/20/18 Range/Units 11:37 16:55 20:53 Hgb (13.0-17.5) gm/dL Plt Count (150-450) k/uL Lymphocytes # (1.0-4.8) k/uL Glucose (74-99) mg/dL POC Glucose (mg/dL) 138 H 100 H 103 H (75-99) mg/dL 12/21/18 12/21/18 12/21/18 Range/Units 04:41 04:41 06:44 Hgb 12.6 L (13.0-17.5) gm/dL Plt Count 143 L (150-450) k/uL Lymphocytes # 0.7 L (1.0-4.8) k/uL Glucose 128 H (74-99) mg/dL POC Glucose (mg/dL) 143 H (75-99) mg/dL Microbiology - Last 24 Hours (Table) 12/18/18 02:50 Gram Stain - Final Sputum Sputum Culture - Final Assessment and Plan Plan: 1 acute cardiac arrest, post resuscitation with CPR and defibrillation 3 with subsequent PCI of the circumflex and zoroastrian of circulation. No signs of any neurologic damage this point in time the patient is hemodynamically stable 2 acute hypoxic respiratory failure secondary to above, recovered and the patient is extubated and the patient is currently being treated for an aspiration pneumonia and the patient continues to have an extensive consolidation of the right lower lobe. Sputum cultures negative and the patient has been treated with IV Zosyn. Based on the report I received, the patient had massive large volume aspiration. He is currently on room in oxygen with a pulse ox in the order of 90%. 3 acute STEMI involving the inferior wall, post cardiac catheterization and stenting of the circumflex coronary artery 4 large volume gastric aspiration 5 diabetes mellitus 6 hypertension 7 hyperlipidemia 8 cardiac family history Plan Add IV Zosyn. Continue Levaquin and switched to oral Ceftin 50 mg by mouth daily. Provide patient incentive spirometer. Monitor the oxygenation. IV he can be transferred out of the intensive care unit. A repeat chest x-ray done for tomorrow. We'll continue to follow.
--- NOTE | 2018-12-21 08:37 | XR ---
EXAMINATION TYPE: XR chest 1V portable DATE OF EXAM: 12/21/2018 Comparison: 12/20/2018 Clinical History: 48-year-old male Tube placement Findings: Heart upper limits of normal in size. Right greater than left perihilar and additional patchy consoli dation throughout the lungs. No sizable effusion seen. Impression: Continued right greater than left perihilar patchy and confluent consolidation, slightly increased in the interval.
[2018-12-21] MEDS: PANTOPRAZOLE 40 MG/10 ML VIAL IV SCH (08:41)
[2018-12-21] MEDS: PRASUGREL 10 MG TAB PO SCH (08:43)
[2018-12-21] MEDS: ASPIRIN 81 MG PO SCH (08:43)
[2018-12-21] MEDS: ATORVASTATIN 80 MG TAB PO SCH (08:43)
[2018-12-21] MEDS: METOPROLOL TARTRATE 25 MG TAB PO SCH ×2 (08:43→21:37)
[2018-12-21] MEDS: PIPERACILLIN-TAZOBACTAM 3.375 GM in SODIUM CHLORIDE 0.9% 100 ML IVPB SCH ×2 (08:43→17:25)
[2018-12-21] MEDS: IPRATROPIUM-ALBUTEROL 3 ML NEB INHALATION SCH ×4 (08:58→19:36)
[2018-12-21 10:14] VITALS: BMI 34.3
[2018-12-21] MEDS: ACETAMINOPHEN TAB 325 MG TAB PO PRN ×2 (11:13→21:46)
[2018-12-21 11:46] LABS: Glucose,Whole Blood 103 mg/dL (75-99)
--- NOTE | 2018-12-21 11:56 | PN ---
PROGRESS NOTE Mir is a 48-year-old gentleman who is admitted to hospital with cardiac arrest, underwent cardiac catheterization, angioplasty. This morning he is feeling better. An echocardiogram on this admission showed an ejection fraction of 45%-50%. On exam, comfortable at rest. Vital signs are stable. There is no jugular venous distention. Chest exam reveals good air entry bilaterally. Heart exam reveals first and second heart sounds. No gallop. Abdomen is soft. Exam of extremities did not reveal any edema. Peripheral pulses are felt. Patient is on aspirin, Lipitor, Cozaar, Lopressor, Effient. ASSESSMENT: Cardiac arrest, status post catheterization and angioplasty. PLAN: Patient is doing well. Will continue with current medications. Hopefully home tomorrow. MMODL / IJN: [id number] /
--- NOTE | 2018-12-21 16:29 | P.PN ---
Subjective Progress Note Date: 12/21/18 Witnessed cardiac arrest/ST segment elevation myocardial infarction Still intubated, patient is active when not sedated, LV function minimally impaired EF between 45 and 50% 12/20/2018 status post cardiac cath with stenting of the circumflex, EF 40-45%. Extubated yesterday. Maintaining O2 sats in the high 90s on 3 L nasal cannula. Continues on beta diego, Effient, aspirin, statin. CXR reporting possible right aspiration lower lobe pneumonia. Maintained on Levaquin IV. Telemetry sinus rhythm. Complains of significant right shoulder pain.VSS. 12/21/2018 continues to do well-overflow in the ICU awaiting transfer to telemetry bed. Right Shoulder x-ray reported spurring with no dislocation or fracture. T-max 101.6 with normal WBC .Chest x-ray reporting slightly increased continued right lower lobe continued patchy confluent density. Antibiotics adjusted, receiving oral Levaquin with Zosyn IV. Ambulating, tolerating an increase in exertion well. Maintaining O2 sats in the low 90s on room air. Telemetry sinus rhythm. No neuro deficits. Objective - Vital Signs Vital signs: Vital Signs Temp 98.9 F 12/21/18 12:00 Pulse 89 12/21/18 15:56 Resp 21 12/21/18 12:00 BP 123/86 12/21/18 12:00 Pulse Ox 94 L 12/21/18 12:00 Intake & Output 12/20/18 12/21/18 12/21/18 18:59 06:59 18:59 Intake Total 500 2050 510 Output Total 235 200 Balance 265 1850 510 Weight 114.8 kg 114.8 kg Intake: IV 500 1750 160 Levofloxacin 750Mg-D5w 150 Pmx 750 mg In Dextrose/ Water 1 150ml.bag @ 100 mls/hr IVPB Q24H [facility] Rx#: [id number] Piperacillin-Tazobactam 3 100 .375 gm In Sodium Chloride 0.9% 100 ml @ 25 mls/hr IVPB Q8HR [facility] Rx# :[id number] Sodium Chloride 0.9% 1, 500 1600 60 000 ml @ 100 mls/hr IV . Q10H [facility] Rx#:[id number] Oral 300 350 Output: Urine 235 200 Other: Voiding Method Indwelling Catheter Indwelling Catheter # Voids 1 ABP, PAP, CO, CI - Last Documented Arterial Blood Pressure 119/75 - Exam General: Sitting up in chair alert and oriented 3, no acute distress, visiting with family HEENT: [PERRL. EOMI. No pharyngeal erythema or exudate.] Neck: [No adenopathy.] Cardiac: [Heart regular in rate and rhythm. No S3. No S4. No clicks, rubs. No murmur.] Lungs: [Clear to auscultation bilaterally. Anterior chest abrasion secondary to defibrillation] Abdomen: [No mass. No organomegaly. Bowel sounds presnt and normoactive in all 4 quadrants.] Extremes: [No edema no cyanosis Musculoskeletal: [No joint erythema, edema or tenderness.] Skin: [No rash.] Neurologic: No focal deficits Lymphatic: [No adenopathy.] Microbiology 12/18/18 02:50 Sputum Gram Stain - Final 12/18/18 02:50 Sputum Sputum Culture - Final - Labs CBC & Chem 7: 12/21/18 04:41 12/21/18 04:41 Labs: Abnormal Lab Results - Last 24 Hours (Table) 12/20/18 12/20/18 12/21/18 Range/Units 16:55 20:53 04:41 Hgb 12.6 L (13.0-17.5) gm/dL Plt Count 143 L (150-450) k/uL Lymphocytes # 0.7 L (1.0-4.8) k/uL Glucose (74-99) mg/dL POC Glucose (mg/dL) 100 H 103 H (75-99) mg/dL 12/21/18 12/21/18 12/21/18 Range/Units 04:41 06:44 11:44 Hgb (13.0-17.5) gm/dL Plt Count (150-450) k/uL Lymphocytes # (1.0-4.8) k/uL Glucose 128 H (74-99) mg/dL POC Glucose (mg/dL) 143 H 103 H (75-99) mg/dL Assessment and Plan Assessment: (1) Acute myocardial infarction,(STEMI) status post cardiac catheterization with stenting of the circumflex Current Visit: Yes Status: Acute Code(s): I21.9 - ACUTE MYOCARDIAL INFARCTION, UNSPECIFIED SNOMED Code(s): 86088578 (2) Acute respiratory failure Current Visit: Yes Status: Acute Code(s): J96.00 - ACUTE RESPIRATORY FAILURE, UNSP W HYPOXIA OR HYPERCAPNIA SNOMED Code(s): 31201123 -Acute aspiration pneumonia, right basilar (3) Cardiac arrest Current Visit: Yes Status: Acute Code(s): I46.9 - CARDIAC ARREST, CAUSE UNSPECIFIED SNOMED Code(s): 848767804 (4) Cardiac arrest with ventricular fibrillation Current Visit: Yes Status: Acute Code(s): I46.9 - CARDIAC ARREST, CAUSE UNSPECIFIED; I49.01 - VENTRICULAR FIBRILLATION SNOMED Code(s): 21439950 (5) Signs of return of spontaneous circulation Current Visit: Yes Status: Acute Code(s): RTW1129 - SNOMED Code(s): 075667016 (6) large volume Gastric aspiration Plan: Continue on current medication regime ,monitoring and symptomatic treatment. Aggressive pulmonary toilet with incentive spirometer ordered/reinforced. Maintain IV antibiotics, nebulized bronchodilators. Cardiology discussing discharge planning for tomorrow. The impression and plan of care has been dictated as directed. : I performed a history and examination of this patient, discussed the same with the dictator. I agree with the dictator's note ,documented as a scribe. Any additional findings or plans will be noted.
[2018-12-21 16:50] LABS: Glucose,Whole Blood 95 mg/dL (75-99)
[2018-12-21] MEDS ORDERED: MENTHOL (NICE) LOZENGE MUCOUS MEM PRN (17:07)
[2018-12-21 21:22] LABS: Glucose,Whole Blood 118 mg/dL (75-99)
[2018-12-21] MEDS: LOSARTAN 25 MG TAB PO SCH (21:37)
[2018-12-21] MEDS: LEVOFLOXACIN 750 MG TAB PO SCH (21:37)
[2018-12-22] MEDS: HEPARIN SODIUM,PORCINE 5,000 UNIT/ML 1 ML VIAL SQ SCH ×3 (00:49→19:40)
[2018-12-22] MEDS: SODIUM CHLORIDE 0.9% 1,000 ML IV SCH ×2 (00:49→23:08)
[2018-12-22] MEDS: PIPERACILLIN-TAZOBACTAM 3.375 GM in SODIUM CHLORIDE 0.9% 100 ML IVPB SCH ×3 (00:49→19:40)
[2018-12-22 05:24] LABS: Basophils # (A) 0.1 k/uL (0-0.2); Basophils % (A) 1 %; Eosinophils # (A) 0.4 k/uL (0-0.7); Eosinophils % (A) 7 %; HCT 38.7 % (39.0-53.0); HGB 12.7 gm/dL (13.0-17.5); Lymphocytes # (A) 0.7 k/uL (1.0-4.8); Lymphocytes % (A) 11 %; MCH 29.4 pg (25.0-35.0); MCHC 32.8 g/dL (31.0-37.0); MCV 89.7 fL (80.0-100.0); Mean Platelet Volume 8.1; Monocytes # (A) 0.5 k/uL (0-1.0); Monocytes % (A) 8 %; Neutrophils # (A) 4.8 k/uL (1.3-7.7); Neutrophils % (A) 72 %; Platelet Count 151 k/uL (150-450); RBC 4.32 m/uL (4.30-5.90); RDW 13.7 % (11.5-15.5); WBC 6.7 k/uL (3.8-10.6)
[2018-12-22 05:56] LABS: African American GFR (CKD) >90 (>60 ml/min/1.73 sqM); Anion Gap 8 mmol/L; Blood Urea Nitrogen 15 mg/dL (9-20); Calcium 8.4 mg/dL (8.4-10.2); Carbon Dioxide 23 mmol/L (22-30); Chloride 108 mmol/L (98-107); Glucose 129 mg/dL (74-99); Potassium 3.7 mmol/L (3.5-5.1); Sodium 139 mmol/L (137-145)
--- NOTE | 2018-12-22 07:07 | XR ---
EXAMINATION TYPE: XR chest 1V portable DATE OF EXAM: 12/22/2018 CLINICAL HISTORY: Difficulty breathing progress study. TECHNIQUE: Single AP portable upright view of the chest is obtained. COMPARISON: Chest x-ray from one day earlier and older studies. FINDINGS: Central perihilar opacities bilaterally remain present. No large pleural effusion or pneum othorax is seen. Cardiac silhouette size is stable and within normal limits. Osseous structures are i ntact. IMPRESSION: Overall stable findings, persistent right greater than left perihilar edema and/or infi ltrates.
[2018-12-22 07:10] LABS: Glucose,Whole Blood 109 mg/dL (75-99)
[2018-12-22] MEDS: INSULIN ASPART (NovoLOG) 100 UNIT/ML VIAL SQ SCH ×4 (07:13→20:30)
[2018-12-22 07:36] LABS: Glucose,Whole Blood 164 mg/dL (75-99)
[2018-12-22] MEDS: IPRATROPIUM-ALBUTEROL 3 ML NEB INHALATION SCH ×4 (07:44→19:39)
[2018-12-22] MEDS: ATORVASTATIN 80 MG TAB PO SCH (08:51)
[2018-12-22] MEDS: METOPROLOL TARTRATE 25 MG TAB PO SCH ×2 (08:51→20:30)
[2018-12-22] MEDS: PRASUGREL 10 MG TAB PO SCH (08:51)
[2018-12-22] MEDS: PANTOPRAZOLE 40 MG TABLET PO SCH (08:51)
[2018-12-22] MEDS ORDERED: POTASSIUM CHLORIDE ER 20 MEQ TAB.ER PO SCH (09:00)
[2018-12-22] MEDS: ASPIRIN 81 MG PO SCH (09:06)
--- NOTE | 2018-12-22 09:55 | P.PN ---
Subjective Progress Note Date: 12/22/18 Principal diagnosis: Acute cardiac arrest, post resuscitation with CPR and defibrillation, PCI and stenting of the circumflex On 12/20/2018 of seeing this patient for a follow-up. His post cardiac arrest. The patient was given CPR. The patient was defibrillated for V. fib. The patient was intubated on the field. The patient was brought into the hospital and the patient was found to have a acute STEMI and the patient underwent stat cardiac catheterization with the patient was found to have a circumflex lesion that was stented. Following that the patient was brought into the ICU. He was weaned off the mechanical ventilator yesterday was extubated without any major d ifficulties. This morning he is hemodynamically stable. He is in a sinus rhythm. History of any chest pain. He is awake and alert and following commands and answering questions appropriately. There is no focal neurological deficit. Echocardiogram showed ejection fraction of 40-45%. Chest the from yesterday showed a possible right lower lobe aspiration pneumonia and the patient is currently on IV Levaquin. From the cardiac standpoint, the patient is on aspirin, Effient, metoprolol 25 mg twice a day. He is also on high-dose statins. I saw count is normal. Renal function is normal. No other issues for now Today's evaluation of seeing this patient for a follow-up. Patient is doing well. No specific complaints. No cardiac arrhythmias. No issues with blood pressure with chest pain. He has developed a skin sore over the anterior chest at the site of the defibrillation. He is also in some soreness over the anterior chest area. Noted the patient is recovering from acute STEMI. He has no cardiac arrhythmias. Hemodynamically stable. His son there will antiplatelet agent in addition to beta diego and angiotensin receptor 2 inhibitor. He is also on high-dose statin. The patient has been without oxygen. This morning it is on room air oxygen and his pulse ox is around 90%. He still has some extensive consolidation of the right lung related to massive aspiration pneumonia. He is less tachycardic compared to yesterday. His heart rate is still sinus down to 93. The sputum sample is negative for any microbial growth. He remains on IV Levaquin. He is also receiving DuoNeb nebulized treatments 4 times a day [id number]. He did have a temperature yesterday of 101.6. On 12/22/2018 patient seen in follow-up in the intensive care unit, he is awake and alert, acute distress, room air pulse ox is 95%, did have a low-grade fevers last night with a T-max of 100.6F. This morning his temp is 99.4. Denies any difficulty breathing, today's follow-up chest x-ray has been reviewed showing perihilar opacities bilaterally, greater on the right, with a suspicion of aspiration pneumonia, patient is on a combination of Zosyn and Levaquin. clinically patient is asymptomatic, no cough or congestion, respirations are nonlabored, lung sounds are diminished at the bases. Sinus rhythm on a monitor, patient is neurologically is intact. Sputum culture showed no growth. Maintenance IV fluid is 0.9 normal saline at a rate of 100 ML per hour. Labs have been reviewed, showing or blood cell, 6.7, hemoglobin of 12.7, platelet count was 151, sodium is 139, potassium is 3.7, chloride is 108, BUN is 15 and creatinine is 0.77. Objective - Vital Signs Vital signs: Vital Signs Temp 99.4 F 12/22/18 01:00 Pulse 93 12/22/18 08:00 Resp 19 12/22/18 06:00 BP 118/75 12/22/18 06:00 Pulse Ox 95 12/22/18 01:00 Intake & Output 12/21/18 12/22/18 12/22/18 18:59 06:59 18:59 Intake Total 510 900 118 Balance 510 900 118 Weight 114.8 kg 115.6 kg Intake: IV 160 420 Piperacillin-Tazobactam 3 100 100 .375 gm In Sodium Chloride 0.9% 100 ml @ 25 mls/hr IVPB Q8HR [facility] Rx# :[id number] Sodium Chloride 0.9% 1, 60 320 000 ml @ 100 mls/hr IV . Q10H [facility] Rx#:[id number] Oral 350 480 118 Other: Voiding Method Toilet # Voids 1 2 ABP, PAP, CO, CI - Last Documented Arterial Blood Pressure 119/75 - Exam GENERAL EXAM: Alert, pleasant, 48-year-old white male, on room air, with a pulse ox of 95% comfortable in no apparent distress. HEAD: Normocephalic/atraumatic. EYES: Normal reaction of pupils, equal size. Conjunctiva pink, sclera white. NOSE: Clear with pink turbinates. THROAT: No erythema or exudates. NECK: No masses, no JVD, no thyroid enlargement, no adenopathy. CHEST: No chest wall deformity. Symmetrical expansion. LUNGS: Equal air entry with no crackles, wheeze, rhonchi or dullness. CVS: Regular rate and rhythm, normal S1 and S2, no gallops, no murmurs, no rubs ABDOMEN: Soft, nontender. No hepatosplenomegaly, normal bowel sounds, no guarding or rigidity. EXTREMITIES: No clubbing, no edema, no cyanosis, 2+ pulses and upper and lower extremities. MUSCULOSKELETAL: Muscle strength and tone normal. SPINE: No scoliosis or deformity SKIN: No rashes CENTRAL NERVOUS SYSTEM: Alert and oriented -3. No focal deficits, tone is normal in all 4 extremities. PSYCHIATRIC: Alert and oriented -3. Appropriate affect. Intact judgment and insight. - Labs CBC & Chem 7: 12/22/18 04:57 12/22/18 04:57 Labs: Abnormal Lab Results - Last 24 Hours (Table) 12/21/18 12/21/18 12/22/18 Range/Units 11:44 21:20 04:57 Hgb 12.7 L (13.0-17.5) gm/dL Hct 38.7 L (39.0-53.0) % Lymphocytes # 0.7 L (1.0-4.8) k/uL Chloride (98-107) mmol/L Glucose (74-99) mg/dL POC Glucose (mg/dL) 103 H 118 H (75-99) mg/dL 12/22/18 12/22/18 12/22/18 Range/Units 04:57 07:09 07:34 Hgb (13.0-17.5) gm/dL Hct (39.0-53.0) % Lymphocytes # (1.0-4.8) k/uL Chloride 108 H (98-107) mmol/L Glucose 129 H (74-99) mg/dL POC Glucose (mg/dL) 109 H 164 H (75-99) mg/dL Assessment and Plan Plan: Assessment: 1 acute cardiac arrest, post resuscitation with CPR and defibrillation 3 with subsequent PCI of the circumflex and church of circulation. No signs of any neurologic damage this point in time the patient is hemodynamically stable 2 acute hypoxic respiratory failure secondary to above, recovered and the patient is extubated and the patient is currently being treated for an aspiration pneumonia and the patient continues to have an extensive consolidation of the right lower lobe. Sputum cultures negative and the patient has been treated with IV Zosyn. Based on the report I received, the patient had massive large volume aspiration. He is currently on room in oxygen with a pulse ox in the order of 90%. 3 acute STEMI involving the inferior wall, post cardiac catheterization and stenting of the circumflex coronary artery 4 large volume gastric aspiration 5 diabetes mellitus 6 hypertension 7 hyperlipidemia 8 cardiac family history Plan: Continue current antibiotic coverage, patient is doing well, no specific complaint, no shortness of breath, chest pain, no neurologic deficits. Increase activity as tolerated, ambulate the patient, we'll repeat chest x-ray tomorrow, patient is stable to go out of intensive care unit today to selective care. Cultures are negative thus far. Still has a low-grade fevers intermittently. Clinically patient is doing well, however would like to see more improvement on the chest x-ray before discharge home. I performed a history & physical examination of the patient and discussed their management with my nurse practitioner, Nela Chanel. I reviewed the nurse practitioner's note and agree with the documented findings and plan of care. Lung sounds are positive for clear lung sounds. The findings and the impression was discussed with the patient. I attest to the documentation by the nurse practitioner. Time with Patient: Less than 30
--- NOTE | 2018-12-22 11:09 | PN ---
PROGRESS NOTE A 48-year-old gentleman who was admitted to hospital with cardiac arrest, underwent cardiac catheterization and angioplasty. This morning he is doing good. He is stable from cardiac standpoint for discharge, but there are concerns about aspiration pneumonia. The patient is currently on aspirin, Lipitor, Cozaar, Lopressor and Effient. PHYSICAL EXAMINATION: On exam, comfortable at rest. Vital signs are stable. Chest exam reveals occasional rhonchi. Heart exam reveals first and second heart sounds. No gallop. Examination of extremities did not reveal any edema. ASSESSMENT: Status post cardiac arrest. PLAN: Patient is doing well from cardiac standpoint. There are concerns about aspiration pneumonia. Patient is on antibiotics. Hopefully home tomorrow. MMODL / IJN: [id number] /
[2018-12-22 11:43] LABS: Glucose,Whole Blood 91 mg/dL (75-99)
[2018-12-22 16:48] LABS: Glucose,Whole Blood 95 mg/dL (75-99)
[2018-12-22 20:30] LABS: Glucose,Whole Blood 140 mg/dL (75-99)
[2018-12-22] MEDS: LOSARTAN 25 MG TAB PO SCH (20:30)
[2018-12-22] MEDS: LEVOFLOXACIN 750 MG TAB PO SCH (20:30)
[2018-12-22] MEDS: ACETAMINOPHEN TAB 325 MG TAB PO PRN (20:32)
[2018-12-23] MEDS: PIPERACILLIN-TAZOBACTAM 3.375 GM in SODIUM CHLORIDE 0.9% 100 ML IVPB SCH ×2 (01:00→08:21)
[2018-12-23] MEDS: HEPARIN SODIUM,PORCINE 5,000 UNIT/ML 1 ML VIAL SQ SCH ×2 (01:59→08:20)
[2018-12-23 04:06] VITALS: BP 119/84
[2018-12-23 07:37] LABS: Glucose,Whole Blood 118 mg/dL (75-99)
[2018-12-23] MEDS: IPRATROPIUM-ALBUTEROL 3 ML NEB INHALATION SCH ×2 (07:38→11:34)
[2018-12-23] MEDS: ATORVASTATIN 80 MG TAB PO SCH (08:20)
[2018-12-23] MEDS: PRASUGREL 10 MG TAB PO SCH (08:21)
[2018-12-23] MEDS: PANTOPRAZOLE 40 MG TABLET PO SCH (08:21)
[2018-12-23] MEDS: ASPIRIN 81 MG PO SCH (08:21)
[2018-12-23] MEDS: METOPROLOL TARTRATE 25 MG TAB PO SCH (08:21)
[2018-12-23] MEDS: INSULIN ASPART (NovoLOG) 100 UNIT/ML VIAL SQ SCH (08:31)
[2018-12-23] MEDS: SODIUM CHLORIDE 0.9% 1,000 ML IV SCH (08:32)
[2018-12-23 08:53] VITALS: PULSE 96; RESP 21; TEMP 98.5
--- NOTE | 2018-12-23 09:49 | XR ---
EXAMINATION TYPE: XR chest 1V portable DATE OF EXAM: 12/23/2018 COMPARISON: 12/22/2018 HISTORY: Follow-up from aspiration TECHNIQUE: Single frontal view of the chest is obtained. FINDINGS: There is a persistent right perihilar and infrahilar opacity. Slight left perihilar promin ence again remains as well as plate like left lower lung horizontally oriented subsegmental atelectas is. No sizable pleural effusion or pneumothorax. No acute osseous pathology. IMPRESSION: Similar probably right perihilar and infrahilar airspace disease with prominence of the left erick that is less exaggerated. Considerations are for central pulmonary edema or pneumonia.
--- NOTE | 2018-12-23 11:10 | PN ---
PROGRESS NOTE A 48-year-old gentleman admitted to hospital with cardiac arrest, underwent cardiac catheterization, angioplasty, doing well and is free of symptoms. He has an aspiration pneumonia, looks much improved and is ready to go home. Patient is on aspirin, Lipitor, Cozaar, Lopressor. Physical exam shows that vital signs are stable. Chest exam reveals occasional rhonchi. Heart exam reveals first and second heart sounds. No gallop. Exam of extremities did not reveal any edema. ASSESSMENT: 1. Acute status post cardiac arrest. 2. Aspiration pneumonia. PLAN: Patient is doing well, is stable for discharge. Follow up with Dr. Charla Delong in a week. MMODL / IJN: [id number] /
--- NOTE | 2018-12-23 14:28 | P.PN ---
Subjective Progress Note Date: 12/23/18 On 12/20/2018 of seeing this patient for a follow-up. His post cardiac arrest. The patient was given CPR. The patient was defibrillated for V. fib. The patient was intubated on the field. The patient was brought into the hospital and the patient was found to have a acute STEMI and the patient underwent stat cardiac catheterization with the patient was found to have a circumflex lesion that was stented. Following that the patient was brought into the ICU. He was weaned off the mechanical ventilator yesterday was extubated without any major difficulties. This morning he is hemodynamically stable. He is in a sinus rhythm. History of any chest pain. He is awake and alert and following comma nds and answering questions appropriately. There is no focal neurological deficit. Echocardiogram showed ejection fraction of 40-45%. Chest the from yesterday showed a possible right lower lobe aspiration pneumonia and the patient is currently on IV Levaquin. From the cardiac standpoint, the patient is on aspirin, Effient, metoprolol 25 mg twice a day. He is also on high-dose statins. I saw count is normal. Renal function is normal. No other issues for now Today's evaluation of seeing this patient for a follow-up. Patient is doing well. No specific complaints. No cardiac arrhythmias. No issues with blood pressure with chest pain. He has developed a skin sore over the anterior chest at the site of the defibrillation. He is also in some soreness over the anterior chest area. Noted the patient is recovering from acute STEMI. He has no cardiac arrhythmias. Hemodynamically stable. His son there will antiplatelet agent in addition to beta diego and angiotensin receptor 2 inhibitor. He is also on high-dose statin. The patient has been without oxygen. This morning it is on room air oxygen and his pulse ox is around 90%. He still has some extensive consolidation of the right lung related to massive aspiration pneumonia. He is less tachycardic compared to yesterday. His heart rate is still sinus down to 93. The sputum sample is negative for any microbial growth. He remains on IV Levaquin. He is also receiving DuoNeb nebulized treatments 4 times a day [id number]. He did have a temperature yesterday of 101.6. On 12/23/2018 the patient is feeling well. Repeat chest x-ray was reviewed and showed improvement in the right lung consolidation. The patient is feeling well. The patient is on room air oxygen. The patient is maintaining a pulse ox of 95% even with activity. No cough sputum production chest that is so wheezing. He was on a combination of Levaquin and he was also receiving IV Zosyn. No angina. No palpitation. No cardiac arrhythmias. No other significant events over the past 24 hours and the patient is probably looking for being discharged home today to complete the course of Augmentin outpatient basis. No other significant events otherwise. Objective - Vital Signs Vital signs: Vital Signs Temp 98.5 F 12/23/18 08:00 Pulse 96 12/23/18 08:00 Resp 21 12/23/18 08:00 BP 119/84 12/23/18 08:00 Pulse Ox 95 12/23/18 08:00 Intake & Output 12/22/18 12/23/18 12/23/18 18:59 06:59 18:59 Intake Total 1418 850 Output Total 1000 Balance 418 850 Weight 111.9 kg Intake: IV 900 100 Piperacillin-Tazobactam 3 100 100 .375 gm In Sodium Chloride 0.9% 100 ml @ 25 mls/hr IVPB Q8HR [facility] Rx# :[id number] Sodium Chloride 0.9% 1, 800 000 ml @ 100 mls/hr IV . Q10H [facility] Rx#:[id number] Oral 518 750 Output: Urine 1000 Other: Voiding Method Toilet Toilet Toilet Urinal Urinal # Voids 1 2 1 ABP, PAP, CO, CI - Last Documented Arterial Blood Pressure 119/75 - Exam The patient appeared well nourished and normally developed. Vital signs as documented. Head exam is unremarkable. No scleral icterus or corneal arcus noted. Neck is without jugular venous distension, thyromegaly, or carotid bruits. Carotid upstrokes are brisk bilaterally. Lungs are clear to auscultation and percussion. Cardiac exam reveals the PMI to be normally sized and situated. Rhythm is regular. First and second heart sounds normal. No murmurs, rubs or gallops. Abdominal exam reveals normal bowel sounds, no masses, no organomegaly and no aortic enlargement. Extremities are nonedematous and both femoral and pedal pulses are normal.Examination of the skin revealed no evidence of significant rashes, suspicious appearing nevi or other concerning lesions. Neurologically the patient is awake and alert and there is no focal neurological deficit. - Labs CBC & Chem 7: 12/22/18 04:57 12/22/18 04:57 Labs: Abnormal Lab Results - Last 24 Hours (Table) 12/22/18 12/23/18 Range/Units 20:29 07:35 POC Glucose (mg/dL) 140 H 118 H (75-99) mg/dL Microbiology - Last 24 Hours (Table) 12/21/18 11:53 Blood Culture - Preliminary Blood No Growth after 48 hours 12/21/18 11:46 Blood Culture - Preliminary Blood No Growth after 48 hours Assessment and Plan Plan: 1 acute cardiac arrest, post resuscitation with CPR and defibrillation 3 with subsequent PCI of the circumflex and church of circulation. No signs of any neurologic damage this point in time the patient is hemodynamically stable 2 acute hypoxic respiratory failure secondary to above, recovered and the pat ient is extubated and the patient is currently being treated for an aspiration pneumonia . The patient improved clinically and x-ray from today showed improvement in the right lower lobe/perihilar consolidation. The patient is and accommodation Levaquin and Zosyn. 3 acute STEMI involving the inferior wall, post cardiac catheterization and stenting of the circumflex coronary artery 4 large volume gastric aspiration 5 diabetes mellitus 6 hypertension 7 hyperlipidemia 8 cardiac family history Plan The patient is doing well. Chest x-ray was reviewed. The patient can be discharged home on oral Augmentin addition to rest of the cardiac medication to be followed up on outpatient basis.
== END 2018-12-23 14:17 | disposition home or self-care (01) | DRG 246 ==
LOC: EC 19:12 → 2SICU 20:04 → EC 20:05
PROVIDERS: ADMIT Family Medicine; ATTEND Family Medicine
PROC: B2111ZZ Fluoroscopy of Multiple Coronary Arteries using Low Osmolar Contrast (ICD-10-PCS; 2018-12-17)
PROC: 0BH18EZ Insertion of Endotracheal Airway into Trachea, Via Natural or Artificial Opening Endoscopic (ICD-10-PCS; 2018-12-17)
PROC: 5A1945Z Respiratory Ventilation, 24-96 Consecutive Hours (ICD-10-PCS; 2018-12-17)
PROC: 0D9670Z Drainage of Stomach with Drainage Device, Via Natural or Artificial Opening (ICD-10-PCS; 2018-12-17)
PROC: 027034Z Dilation of Coronary Artery, One Artery with Drug-eluting Intraluminal Device, Percutaneous Approach (ICD-10-PCS; principal; 2018-12-17 19:41)
PROC: 4A023N7 Measurement of Cardiac Sampling and Pressure, Left Heart, Percutaneous Approach (ICD-10-PCS; 2018-12-17 19:41)
PROC: 03HY32Z Insertion of Monitoring Device into Upper Artery, Percutaneous Approach (ICD-10-PCS; 2018-12-18)
PROC: 4A133B1 Monitoring of Arterial Pressure, Peripheral, Percutaneous Approach (ICD-10-PCS; 2018-12-18)
PROC: 4A133J1 Monitoring of Arterial Pulse, Peripheral, Percutaneous Approach (ICD-10-PCS; 2018-12-18)
PROC: 3E0G76Z Introduction of Nutritional Substance into Upper GI, Via Natural or Artificial Opening (ICD-10-PCS; 2018-12-18)
DX: I21.19 ST elevation (STEMI) myocardial infarction involving other coronary artery of inferior wall (principal); I46.2 Cardiac arrest due to underlying cardiac condition; I49.01 Ventricular fibrillation; J96.01 Acute respiratory failure with hypoxia; J69.0 Pneumonitis due to inhalation of food and vomit; E83.39 Other disorders of phosphorus metabolism; E83.42 Hypomagnesemia; I25.10 Atherosclerotic heart disease of native coronary artery without angina pectoris; T88.4XXA Failed or difficult intubation, initial encounter; I10 Essential (primary) hypertension; E11.9 Type 2 diabetes mellitus without complications; E78.5 Hyperlipidemia, unspecified; K21.9 Gastro-esophageal reflux disease without esophagitis; M25.511 Pain in right shoulder; Z79.84 Long term (current) use of oral hypoglycemic drugs; Z98.890 Other specified postprocedural states; Y92.320 Baseball field as the place of occurrence of the external cause; Y93.64 Activity, baseball; Z82.49 Family history of ischemic heart disease and other diseases of the circulatory system
CPT/HCPCS: 31500; 36415; 36600; 71045; 80048; 80053; 82550; 82553; 82805; 83735; 84100; 84484; 85025; 85027; 85610; 85730; 87040; 87070; 87205; 93005; 93306; 93458; 94002; 94003; 94640; 96374; 99291; C1874

== ENCOUNTER → 2020-07-19 | Outpatient (CLI) | payer SELFPAY ==
--- NOTE | 2020-07-19 13:01 | FL ---
EXAMINATION TYPE: FL barium swallow DATE OF EXAM: 07/19/2020 CLINICAL INDICATION: 50-year-old male R13.10, dysphagia, reflux for 6 months and hoarseness. COMPARISON: 08/13/2010 Total Fluoroscopy Time: 1 minute 58 seconds Total images: 33 FINDINGS: The swallowing mechanism is normal and hypopharyngeal anatomy is preserved. The cervical and thoracic portions have a normal course and caliber. There are blunted secondary stripping waves with residual contrast in the esophagus especially when t he patient is supine or prone. The patient had to be brought upright to clear the esophagus. The mucosa is normal and no persistent filling defect is encountered. There is a tiny sliding hiatal hernia. However, Valsalva and positional maneuvers could not elicit an y gastroesophageal reflux at this time. IMPRESSION: 1. Blunted secondary stripping waves with residual contrast remaining in the esophagus especially whe n the patient is supine or prone. The patient had to be brought upright to clear the esophagus. Findi ngs suggest mild to moderate esophageal dysmotility. 2. Tiny sliding hiatal hernia. Unable to elicit gastroesophageal reflux during the course of the exam . However, this does not exclude its possibility.
== END | disposition home or self-care (01) ==
LOC: RADUSWWP 08:15
PROVIDERS: ATTEND Otolaryngology
DX: K44.9 Diaphragmatic hernia without obstruction or gangrene (principal)
CPT/HCPCS: 74220

== ENCOUNTER 2021-09-11 10:37 | Emergency (ER) | payer OTHER ==
[~2021-09-11 10:37] MED LIST: BEBTELOVIMAB (EUA) 175 MG/2 ML VIAL IV NR; BEBTELOVIMAB (EUA) 175 MG/2 ML VIAL IV ONE
[2021-09-11 10:45] VITALS: TEMP 98.3
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
[2021-09-11] MEDS ORDERED: BEBTELOVIMAB (EUA) 175 MG/2 ML VIAL IV ONE (12:00)
[2021-09-11 13:09] VITALS: BP 108/78; PULSE 91; RESP 16
== END 2021-09-11 13:08 | disposition home or self-care (01) ==
LOC: EC 10:37
DX: U07.1 COVID-19 (principal); E11.9 Type 2 diabetes mellitus without complications; Z82.49 Family history of ischemic heart disease and other diseases of the circulatory system
CPT/HCPCS: 99283; 87635; Q0222

== ENCOUNTER 2023-08-18 14:16 | Emergency (ER) | payer BC, OTHER ==
[2023-08-18] MEDS: SODIUM CHLORIDE 0.9% 1,000 ML IV STA (14:49)
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
[2023-08-18 14:52] VITALS: TEMP 97.6
[2023-08-18 14:59] LABS: Basophils # (A) 0.1 k/uL (0-0.2); Basophils % (A) 1 %; Eosinophils # (A) 0.4 k/uL (0-0.7); Eosinophils % (A) 4 %; HCT 51.8 % (39.0-53.0); HGB 16.9 gm/dL (13.0-17.5); Lymphocytes % (A) 24 %; MCH 29.5 pg (25.0-35.0); MCHC 32.6 g/dL (31.0-37.0); MCV 90.5 fL (80.0-100.0); Mean Platelet Volume 8.1; Monocytes # (A) 0.5 k/uL (0-1.0); Monocytes % (A) 6 %; Neutrophils # (A) 5.1 k/uL (1.3-7.7); Neutrophils % (A) 62 %; Platelet Count 186 k/uL (150-450); RBC 5.72 m/uL (4.30-5.90); RDW 13.2 % (11.5-15.5); WBC 8.3 k/uL (3.8-10.6)
[2023-08-18 15:09] LABS: ALT 51 U/L (4-49); AST 31 U/L (17-59); African American GFR (CKD) >90 (>60 ml/min/1.73 sqM); Albumin 4.7 g/dL (3.5-5.0); Alkaline Phosphatase 67 U/L (38-126); Anion Gap 9 mmol/L; Blood Urea Nitrogen 20 mg/dL (9-20); Calcium 10.3 mg/dL (8.4-10.2); Carbon Dioxide 27 mmol/L (22-30); Chloride 104 mmol/L (98-107); Glucose 129 mg/dL (74-99); Magnesium 1.9 mg/dL (1.6-2.3); Non-African American GFR(CKD) >90 (>60 ml/min/1.73 sqM); Potassium 4.5 mmol/L (3.5-5.1); Sodium 140 mmol/L (137-145); Total Bilirubin 1.2 mg/dL (0.2-1.3); Total Protein 7.4 g/dL (6.3-8.2)
--- NOTE | 2023-08-18 15:33 | XR ---
EXAMINATION TYPE: XR chest 2V DATE OF EXAM: 08/18/2023 COMPARISON: 12/23/2018 TECHNIQUE: PA and lateral views submitted. HISTORY: Weakness FINDINGS: The lungs are clear and there is no pneumothorax, pleural effusion, or focal pneumonia. Heart size normal and no overt failure. Osseous structures intact. IMPRESSION: 1. No acute process.
[2023-08-18 17:08] VITALS: BP 133/84; PULSE 85; RESP 16
== END 2023-08-18 17:04 | disposition home or self-care (01) ==
LOC: EC 14:16
DX: R53.83 Other fatigue (principal); R20.2 Paresthesia of skin; E11.9 Type 2 diabetes mellitus without complications; Z79.84 Long term (current) use of oral hypoglycemic drugs
CPT/HCPCS: 36415; 71046; 80053; 82009; 83605; 83735; 84443; 84484; 85025; 87636; 93005; 96360; 96361; 99285

== ENCOUNTER 2024-11-08 11:33 | Emergency (ER) | payer BC ==
[2024-11-08 11:40] VITALS: RESP 18; TEMP 98.5
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
--- NOTE | 2024-11-08 13:00 | CT ---
EXAMINATION TYPE: CT pelvis wo con CT DLP: 453.8 mGycm, Automated exposure control for dose reduction was used. DATE OF EXAM: 11/08/2024 12:41 PM COMPARISON: None CLINICAL INDICATION:Male, 54 years old with history of Fall; Fall x2wks ago, low back and pelvic pain . TECHNIQUE: Standard CT of the pelvis without IV or oral contrast. Lack of IV or oral contrast limit s evaluation of solid and hollow organ viscera. Coronal and sagittal reformats were performed. FINDINGS: BLADDER: Unremarkable REPRODUCTIVE: Unremarkable. BOWEL: No focal bowel wall thickening or surrounding inflammatory changes. The appendix is within nor mal limits. No evidence of bowel obstruction. PERITONEUM: No evidence of pneumoperitoneum or free fluid. VASCULATURE: Remarkable noncontrast appearance. MUSCULOSKELETAL: No acute osseous abnormalities. Calcification within the right anterior thigh fascia l plane. LYMPH NODES: No gross evidence for lymphadenopathy. SOFT TISSUE/ABDOMINAL WALL: Small fat filled fat filled right periumbilical hernia. Patulous fat fill ed right inguinal ring. IMPRESSION: No CT evidence for acute traumatic process within the pelvis. [facility], , 11/08/2024 12:58 PM
--- NOTE | 2024-11-08 13:08 | CT ---
EXAMINATION TYPE: CT lumbar spine wo con CT DLP: 1245 mGycm, Automated exposure control for dose reduction was used. DATE OF EXAM: 11/08/2024 12:41 PM COMPARISON: CT pelvis of the same date. CLINICAL INDICATION:Male, 54 years old with history of Fall; PHH, Fall x2wks ago, low back and pelvic pain., pain TECHNIQUE: Multiple axial images were obtained from the midportion of T11 through the sacroiliac marino nts. Soft tissue and bone windows in coronal and sagittal planes were obtained and reviewed. Contrast used: none. Oral contrast used: none. FINDINGS: Alignment: There are 5 lumbar type vertebral bodies within normal alignment. Bone: No evidence of acute fracture identified. Discs: Multilevel small Schmorl's nodes. T12-L1: No spinal canal or neural foraminal stenosis is identified. L1-L2: No spinal canal or neural foraminal stenosis is identified. L2-L3: No spinal canal or neural foraminal stenosis is identified. L3-L4: Broad-based disc bulge without significant central canal stenosis. Left facet arthropathy. Mod erate left neural foraminal stenosis. The right neural foramen is patent. L4-L5: Broad-based disc bulge. No significant central canal stenosis. No significant neural foraminal stenosis. L5-S1: Broad-based disc bulge without significant central canal stenosis. Mild right and [id number] rate left neural foraminal stenosis. Other: None IMPRESSION: 1. No evidence for acute spinal fracture. 2. Mild multilevel degenerative disc disease and osteoarthritic change. [facility], , 11/08/2024 1:06 PM
[2024-11-08 14:04] VITALS: BP 118/64; PULSE 68
== END 2024-11-08 14:03 | disposition home or self-care (01) ==
LOC: EC 11:33
DX: S39.012A Strain of muscle, fascia and tendon of lower back, initial encounter (principal); W17.2XXA Fall into hole, initial encounter
CPT/HCPCS: 72131; 72192; 99283